=== PATIENT | female | born 1950 | race Caucasian/White ===

== ENCOUNTER 2022-06-03 15:15 | Inpatient (IN) | payer MEDICARE ==
[~2022-06-03] VITALS: Ht 167.6 cm; Wt 81.6 kg
[2022-06-03] MEDS: METFORMIN HCL 500 MG TAB PO SCH ×2 (08:00→17:00)
[2022-06-03] MEDS: Morphine 2mg Syringe 2 MG/ML SYR IV PRN ×2 (12:25→18:44)
[2022-06-03 15:48] LABS: BASOPHILS % 0.5 % (0.0-1.0); EOSINOPHILS # (AUTO) 0.1 (0.0-0.4); HEMATOCRIT 45.5 % (34.2-44.1); HEMOGLOBIN 14.6 g/dL (12.0-16.0); LYMPHOCYTES # (AUTO) 3.9 (1.0-3.2); LYMPHOCYTES % 47.6 % (18.0-39.1); MEAN CORPUSCULAR HEMOGLOBIN 32.7 pg (28-32); MEAN CORPUSCULAR HGB CONC 32.1 g/dL (31-35); MONOCYTES # (AUTO) 0.5 (0.2-0.8); MONOCYTES % 6.6 % (4.4-11.3); NEUTROPHILS # (AUTO) 3.7 (2.1-6.9); NEUTROPHILS % 44.2 % (38.7-80.0); PLATELET COUNT 443 x10e3/uL (140-360); RED BLOOD COUNT 4.46 x10e6/uL (3.6-5.1); RED CELL DISTRIBUTION WIDTH 15.8 % (11.7-14.4)
[2022-06-03 15:54] LABS: INR 0.86; PARTIAL THROMBOPLASTIN TIME 26.2 seconds (23.8-35.5); PROTHROMBIN TIME 12.5 seconds (11.9-14.5)
[2022-06-03 16:01] LABS: ALBUMIN 3.4 g/dL (3.5-5.0); ALBUMIN/GLOBULIN RATIO 0.7 (0.8-2.0); ANION GAP 13.1 mmol/L (8-16); CALCIUM 9.1 mg/dL (8.4-10.2); CREATININE, SERUM 0.8 mg/dL (0.57-1.11); POTASSIUM 4.1 mmol/L (3.5-5.1)
[2022-06-03] MEDS ORDERED: Morphine 2mg Syringe 2 MG/ML SYR IV ONE (16:15)
[2022-06-03] MEDS ORDERED: Morphine 2mg Syringe 2 MG/ML SYR IV PRN (16:30)
[2022-06-03] MEDS ORDERED: HYDROMORPHONE 1MG/1ML INJ IV PRN (17:30)
[2022-06-03 17:34] LABS: AMYLASE 59 U/L (25-125); LIPASE 12 U/L (8-78)
[2022-06-03] MEDS ORDERED: ATORVASTATIN CA20 MG PO (17:52)
[2022-06-03] MEDS ORDERED: ELIQUIS5 MG PO (17:52)
[2022-06-03] MEDS ORDERED: METOPROLOL TART25 MG PO (17:52)
[2022-06-03] MEDS ORDERED: METFORMIN HCL500 MG PO (17:52)
[2022-06-03] MEDS ORDERED: NOVOLOG100 UNIT/1 SC (17:52)
[2022-06-03 17:59] VITALS: BP 154/63
[2022-06-03 18:08] VITALS: BP 154/63
[2022-06-03 18:22] VITALS: BP 154/63
[2022-06-03] MEDS: SODIUM CHLORIDE 0.9% 1000ML 1,000 ML IV SCH (18:44)
[2022-06-03 20:00] VITALS: BP 150/64
[2022-06-03] MEDS: ATORVASTATIN 40 MG TAB PO SCH (21:16)
[2022-06-03] MEDS: ENOXAPARIN INJ 80 MG/0.8 ML SYR SC SCH (21:16)
[2022-06-04] VITALS (7 sets, daily range): BP systolic 130–146; BP diastolic 62–82
[2022-06-04] MEDS: Morphine 2mg Syringe 2 MG/ML SYR IV PRN ×4 (00:25→18:21)
[2022-06-04] MEDS: SODIUM CHLORIDE 0.9% 1000ML 1,000 ML IV SCH ×3 (01:18→16:46)
[2022-06-04 03:48] LABS: CREATINE KINASE MB 0.8 ng/mL (0-5.0)
[2022-06-04 05:51] LABS: BASOPHILS % 0.4 % (0.0-1.0); EOSINOPHILS # (AUTO) 0.2 (0.0-0.4); EOSINOPHILS % 2.7 % (0.0-6.0); HEMATOCRIT 42.5 % (34.2-44.1); HEMOGLOBIN 13.3 g/dL (12.0-16.0); LYMPHOCYTES # (AUTO) 5.2 (1.0-3.2); LYMPHOCYTES % 61.8 % (18.0-39.1); MEAN CORPUSCULAR HEMOGLOBIN 32.6 pg (28-32); MEAN CORPUSCULAR HGB CONC 31.3 g/dL (31-35); MEAN CORPUSCULAR VOLUME 104.2 fL (81-99); MONOCYTES # (AUTO) 0.9 (0.2-0.8); MONOCYTES % 10.8 % (4.4-11.3); NEUTROPHILS % 24.1 % (38.7-80.0); PLATELET COUNT 416 x10e3/uL (140-360); RED BLOOD COUNT 4.08 x10e6/uL (3.6-5.1); RED CELL DISTRIBUTION WIDTH 15.7 % (11.7-14.4)
[2022-06-04 06:19] LABS: ANION GAP 14.1 mmol/L (8-16); CALCIUM 8.3 mg/dL (8.4-10.2); CREATININE, SERUM 0.66 mg/dL (0.57-1.11); POTASSIUM 4.1 mmol/L (3.5-5.1)
[2022-06-04] MEDS ORDERED: IOPAMIDOL 370 MG/ML 100 ML INFUS..BTL INJ ONE (07:30)
[2022-06-04] MEDS: METOPROLOL TARTRATE 25 MG TAB PO SCH ×2 (08:25→16:47)
[2022-06-04] MEDS: METFORMIN HCL 500 MG TAB PO SCH ×2 (08:26→16:47)
[2022-06-04] MEDS: ENOXAPARIN INJ 80 MG/0.8 ML SYR SC SCH ×2 (08:26→20:03)
[2022-06-04] MEDS: INSULIN LISPRO 100 UNIT/1 ML 3ML VIAL SQ SCH ×3 (08:31→16:54)
[2022-06-04 09:39] LABS: INR 0.91; PROTHROMBIN TIME 13.1 seconds (11.9-14.5)
[2022-06-04 09:53] LABS: CREATINE KINASE MB 0.8 ng/mL (0-5.0)
[2022-06-04] MEDS ORDERED: WARFARIN SOD 5 MG TAB PO SCH (17:00)
[2022-06-04] MEDS: ONDANSETRON HCL INJ 2MG/ML 2ML 2 MG/ML VIAL IV PRN (18:21)
[2022-06-04] MEDS: ATORVASTATIN 40 MG TAB PO SCH (20:03)
[2022-06-05] VITALS (8 sets, daily range): BP systolic 126–156; BP diastolic 60–77
[2022-06-05] MEDS: Morphine 2mg Syringe 2 MG/ML SYR IV PRN ×4 (00:30→22:18)
[2022-06-05] MEDS: SODIUM CHLORIDE 0.9% 1000ML 1,000 ML IV SCH (00:30)
[2022-06-05] MEDS: ONDANSETRON HCL INJ 2MG/ML 2ML 2 MG/ML VIAL IV PRN ×2 (00:30→06:48)
[2022-06-05] MEDS: METOPROLOL TARTRATE 25 MG TAB PO SCH ×2 (09:05→16:53)
[2022-06-05] MEDS: METFORMIN HCL 500 MG TAB PO SCH ×2 (09:05→16:52)
[2022-06-05] MEDS: ENOXAPARIN INJ 80 MG/0.8 ML SYR SC SCH ×2 (09:05→21:36)
[2022-06-05] MEDS: INSULIN LISPRO 100 UNIT/1 ML 3ML VIAL SQ SCH ×3 (09:10→21:45)
[2022-06-05 10:13] LABS: INR 0.84; PROTHROMBIN TIME 12.3 seconds (11.9-14.5)
[2022-06-05] MEDS ORDERED: DEXTROSE 50% SYRINGE 50 ML IV PRN ×2 (11:45→12:00)
[2022-06-05] MEDS ORDERED: INSULIN GLARGINE 100 UNITS/ML VIAL SQ ONE (11:45)
[2022-06-05] MEDS: WARFARIN SOD 3 MG TAB PO SCH (16:53)
[2022-06-05] MEDS: ATORVASTATIN 40 MG TAB PO SCH (21:35)
[2022-06-05] MEDS: INSULIN GLARGINE 100 UNITS/ML VIAL SQ SCH (21:44)
[2022-06-06] VITALS (9 sets, daily range): BP systolic 128–165; BP diastolic 58–70
[2022-06-06] MEDS: TRAMADOL HCL 50 MG TAB PO PRN ×3 (03:42→18:29)
[2022-06-06 06:26] LABS: INR 0.94; PROTHROMBIN TIME 13.4 seconds (11.9-14.5)
[2022-06-06] MEDS: Morphine 2mg Syringe 2 MG/ML SYR IV PRN ×2 (06:50→14:43)
[2022-06-06] MEDS: INSULIN LISPRO 100 UNIT/1 ML 3ML VIAL SQ SCH ×4 (07:30→21:10)
[2022-06-06] MEDS: ENOXAPARIN INJ 80 MG/0.8 ML SYR SC SCH ×2 (09:20→21:04)
[2022-06-06] MEDS: METOPROLOL TARTRATE 25 MG TAB PO SCH ×2 (09:20→21:03)
[2022-06-06] MEDS: METFORMIN HCL 500 MG TAB PO SCH ×2 (09:21→17:24)
[2022-06-06 09:28] LABS: INR 0.94; PROTHROMBIN TIME 13.4 seconds (11.9-14.5)
[2022-06-06] MEDS: WARFARIN SOD 3 MG TAB PO SCH (17:23)
[2022-06-06] MEDS ORDERED: WARFARIN SOD 5 MG TAB PO ONE (18:55)
[2022-06-06] MEDS: ATORVASTATIN 40 MG TAB PO SCH (21:02)
[2022-06-06] MEDS: INSULIN GLARGINE 100 UNITS/ML VIAL SQ SCH (21:10)
[2022-06-06] MEDS: HYDROCODONE/APAP 5MG-325MG TAB PO PRN (22:53)
[2022-06-07] VITALS (7 sets, daily range): BP systolic 127–153; BP diastolic 57–74
[2022-06-07] MEDS: TRAMADOL HCL 50 MG TAB PO PRN (04:56)
[2022-06-07 06:05] LABS: BASOPHILS # (AUTO) 0.1 (0.0-0.1); BASOPHILS % 0.6 % (0.0-1.0); EOSINOPHILS # (AUTO) 0.2 (0.0-0.4); EOSINOPHILS % 1.8 % (0.0-6.0); HEMATOCRIT 40.5 % (34.2-44.1); HEMOGLOBIN 13.3 g/dL (12.0-16.0); LYMPHOCYTES # (AUTO) 5.3 (1.0-3.2); LYMPHOCYTES % 49.9 % (18.0-39.1); MEAN CORPUSCULAR HEMOGLOBIN 33.3 pg (28-32); MEAN CORPUSCULAR HGB CONC 32.8 g/dL (31-35); MEAN CORPUSCULAR VOLUME 101.3 fL (81-99); MONOCYTES # (AUTO) 0.9 (0.2-0.8); MONOCYTES % 8.1 % (4.4-11.3); NEUTROPHILS # (AUTO) 4.1 (2.1-6.9); NEUTROPHILS % 39.2 % (38.7-80.0); PLATELET COUNT 409 x10e3/uL (140-360); RED CELL DISTRIBUTION WIDTH 15.3 % (11.7-14.4)
[2022-06-07 06:22] LABS: INR 1.13; PROTHROMBIN TIME 15.5 seconds (11.9-14.5)
[2022-06-07 06:45] LABS: ALBUMIN/GLOBULIN RATIO 0.7 (0.8-2.0); ANION GAP 12.3 mmol/L (8-16); CALCIUM 8.4 mg/dL (8.4-10.2); CREATININE, SERUM 0.62 mg/dL (0.57-1.11); POTASSIUM 3.3 mmol/L (3.5-5.1)
[2022-06-07] MEDS: POTASSIUM CHLORIDE 20 MEQ TAB CR PO SCH ×2 (08:55→11:21)
[2022-06-07] MEDS: ENOXAPARIN INJ 80 MG/0.8 ML SYR SC SCH ×2 (08:55→21:08)
[2022-06-07] MEDS: METOPROLOL TARTRATE 25 MG TAB PO SCH ×2 (08:56→21:08)
[2022-06-07] MEDS: METFORMIN HCL 500 MG TAB PO SCH ×2 (08:57→17:06)
[2022-06-07] MEDS: HYDROCODONE/APAP 5MG-325MG TAB PO PRN ×3 (08:57→21:14)
[2022-06-07 08:59] LABS: INR 1.16; PROTHROMBIN TIME 15.8 seconds (11.9-14.5)
[2022-06-07] MEDS: INSULIN LISPRO 100 UNIT/1 ML 3ML VIAL SQ SCH ×4 (09:27→22:03)
[2022-06-07] MEDS ORDERED: WARFARIN SOD 5 MG TAB PO SCH (17:00)
[2022-06-07] MEDS ORDERED: WARFARIN SOD 2 MG TAB PO ONE (17:00)
[2022-06-07] MEDS: INSULIN GLARGINE 100 UNITS/ML VIAL SQ SCH (21:00)
[2022-06-07] MEDS: ATORVASTATIN 40 MG TAB PO SCH (21:15)
[2022-06-08] VITALS (7 sets, daily range): BP systolic 111–144; BP diastolic 71–87
[2022-06-08] MEDS: TRAMADOL HCL 50 MG TAB PO PRN (01:51)
[2022-06-08 06:34] LABS: INR 1.53; PROTHROMBIN TIME 19.7 seconds (11.9-14.5)
[2022-06-08] MEDS: INSULIN LISPRO 100 UNIT/1 ML 3ML VIAL SQ SCH ×4 (07:30→21:00)
[2022-06-08] MEDS: HYDROCODONE/APAP 5MG-325MG TAB PO PRN ×3 (07:59→20:00)
[2022-06-08 08:56] LABS: INR 1.56
[2022-06-08] MEDS: METFORMIN HCL 500 MG TAB PO SCH ×2 (09:21→17:50)
[2022-06-08] MEDS: METOPROLOL TARTRATE 25 MG TAB PO SCH ×2 (09:22→21:13)
[2022-06-08] MEDS: ENOXAPARIN INJ 80 MG/0.8 ML SYR SC SCH ×2 (09:25→21:14)
[2022-06-08] MEDS ORDERED: WARFARIN SOD 2 MG TAB PO SCH (17:00)
[2022-06-08] MEDS ORDERED: WARFARIN SOD 2.5 MG TAB PO SCH (17:35)
[2022-06-08] MEDS ORDERED: WARFARIN SOD 5 MG TAB PO SCH (17:35)
[2022-06-08] MEDS: WARFARIN SOD 2 MG TAB PO SCH (18:00)
[2022-06-08] MEDS: WARFARIN SOD 5 MG TAB PO SCH (18:00)
[2022-06-08] MEDS: INSULIN GLARGINE 100 UNITS/ML VIAL SQ SCH (21:00)
[2022-06-08] MEDS: ATORVASTATIN 40 MG TAB PO SCH (21:14)
[2022-06-09] VITALS: BP 144/69
[2022-06-09] MEDS: TRAMADOL HCL 50 MG TAB PO PRN ×4 (01:38→19:59)
[2022-06-09 04:00] VITALS: BP 161/73
[2022-06-09 06:21] LABS: INR 1.72; PROTHROMBIN TIME 21.5 seconds (11.9-14.5)
[2022-06-09] MEDS: INSULIN LISPRO 100 UNIT/1 ML 3ML VIAL SQ SCH ×4 (07:30→21:00)
[2022-06-09 07:57] VITALS: BP 131/56
[2022-06-09] MEDS: ENOXAPARIN INJ 80 MG/0.8 ML SYR SC SCH ×2 (09:17→21:00)
[2022-06-09] MEDS: METOPROLOL TARTRATE 25 MG TAB PO SCH ×2 (09:17→21:00)
[2022-06-09] MEDS: METFORMIN HCL 500 MG TAB PO SCH ×2 (09:18→15:51)
[2022-06-09 09:28] VITALS: BP 131/56
[2022-06-09] MEDS: HYDROCODONE/APAP 5MG-325MG TAB PO PRN ×3 (09:28→22:40)
[2022-06-09 09:39] LABS: INR 1.73; PROTHROMBIN TIME 21.6 seconds (11.9-14.5)
[2022-06-09 11:27] VITALS: BP 140/68
[2022-06-09] MEDS ORDERED: DOCUSATE SODIUM 100 MG CAP PO PRN (13:30)
[2022-06-09] MEDS ORDERED: LACTULOSE SYRUP 20 GM/30 ML UDC PO PRN (13:45)
[2022-06-09 14:19] LABS: BASOPHILS # (AUTO) 0.1 (0.0-0.1); BASOPHILS % 0.7 % (0.0-1.0); EOSINOPHILS # (AUTO) 0.2 (0.0-0.4); EOSINOPHILS % 2.6 % (0.0-6.0); HEMATOCRIT 47.2 % (34.2-44.1); HEMOGLOBIN 15.6 g/dL (12.0-16.0); LYMPHOCYTES # (AUTO) 3.8 (1.0-3.2); LYMPHOCYTES % 44.4 % (18.0-39.1); MEAN CORPUSCULAR HEMOGLOBIN 32.8 pg (28-32); MEAN CORPUSCULAR HGB CONC 33.1 g/dL (31-35); MEAN CORPUSCULAR VOLUME 99.2 fL (81-99); MONOCYTES # (AUTO) 0.7 (0.2-0.8); MONOCYTES % 7.8 % (4.4-11.3); NEUTROPHILS # (AUTO) 3.8 (2.1-6.9); NEUTROPHILS % 44.3 % (38.7-80.0); PLATELET COUNT 489 x10e3/uL (140-360); RED BLOOD COUNT 4.76 x10e6/uL (3.6-5.1); RED CELL DISTRIBUTION WIDTH 14.8 % (11.7-14.4)
[2022-06-09 14:31] LABS: ANION GAP 14.1 mmol/L (8-16); CALCIUM 8.9 mg/dL (8.4-10.2); CREATININE, SERUM 0.74 mg/dL (0.57-1.11); POTASSIUM 4.1 mmol/L (3.5-5.1)
[2022-06-09] MEDS: DOCUSATE SODIUM 100 MG CAP PO SCH (15:51)
[2022-06-09 16:21] VITALS: BP 155/76
[2022-06-09] MEDS: WARFARIN SOD 2 MG TAB PO SCH (16:39)
[2022-06-09] MEDS: WARFARIN SOD 5 MG TAB PO SCH (16:39)
[2022-06-09] MEDS: ATORVASTATIN 40 MG TAB PO SCH (21:00)
[2022-06-09] MEDS: INSULIN GLARGINE 100 UNITS/ML VIAL SQ SCH (21:00)
[2022-06-10] VITALS: BP 153/70
[2022-06-10] MEDS: TRAMADOL HCL 50 MG TAB PO PRN ×5 (03:29→16:30)
[2022-06-10 04:00] VITALS: BP 151/61
[2022-06-10] MEDS: HYDROCODONE/APAP 5MG-325MG TAB PO PRN ×3 (05:48→18:06)
[2022-06-10 06:12] LABS: INR 2.13; PROTHROMBIN TIME 25.5 seconds (11.9-14.5)
[2022-06-10 07:32] VITALS: BP 151/61
[2022-06-10 08:26] VITALS: BP 132/60
[2022-06-10] MEDS: METFORMIN HCL 500 MG TAB PO SCH ×2 (09:13→16:32)
[2022-06-10] MEDS: DOCUSATE SODIUM 100 MG CAP PO SCH ×2 (09:16→16:32)
[2022-06-10] MEDS: METOPROLOL TARTRATE 25 MG TAB PO SCH (09:17)
[2022-06-10] MEDS: ENOXAPARIN INJ 80 MG/0.8 ML SYR SC SCH (09:18)
[2022-06-10] MEDS: INSULIN LISPRO 100 UNIT/1 ML 3ML VIAL SQ SCH ×3 (10:19→15:42)
[2022-06-10 12:14] VITALS: BP 145/64
[2022-06-10 16:04] VITALS: BP 115/60
[2022-06-10] MEDS: WARFARIN SOD 5 MG TAB PO SCH (18:05)
[2022-06-10] MEDS: WARFARIN SOD 2 MG TAB PO SCH (18:05)
[2022-06-10] MEDS ORDERED: ONDANSETRON HCL 4 MG ORAL DISINTEGRATING TAB PO PRN (19:15)
== END 2022-06-10 19:51 | disposition home or self-care (01) | DRG 176 ==
LOC: ER 15:24 → ERHOLD 16:30 → MED/SURG2 17:44
PROVIDERS: ADMIT Family Medicine; ATTEND Family Medicine
DX: I26.93 Single subsegmental thrombotic pulmonary embolism without acute cor pulmonale (principal); D68.9 Coagulation defect, unspecified; I26.99 Other pulmonary embolism without acute cor pulmonale; I10 Essential (primary) hypertension; Z20.822 Contact with and (suspected) exposure to COVID-19; K59.00 Constipation, unspecified; Z79.84 Long term (current) use of oral hypoglycemic drugs; I48.0 Paroxysmal atrial fibrillation; Z79.01 Long term (current) use of anticoagulants; E11.69 Type 2 diabetes mellitus with other specified complication; E78.5 Hyperlipidemia, unspecified
CPT/HCPCS: 0223U; 36415; 71045; 80048; 80053; 82150; 82550; 82553; 82948; 83690; 83880; 84484; 85025; 85610; 85730; 93005; 93306; 94799; 99284; J1650; J1815; J2270; J2405; J7030; Q9967

== ENCOUNTER → 2022-06-03 | Outpatient (CLI) | payer MEDICARE ==
[~2022-06-03] MED LIST: ATORVASTATIN CA20 MG PO; ELIQUIS5 MG PO; METFORMIN HCL500 MG PO; METOPROLOL TART25 MG PO; NOVOLOG100 UNIT/1 SC
[2022-06-03 13:48] LABS: CREATININE, SERUM 0.84 mg/dL (0.57-1.11)
== END ==
LOC: CT 12:36
PROVIDERS: ATTEND Nurse Practitioner Family
DX: R09.02 Hypoxemia (principal)
CPT/HCPCS: 36415; 71260; 82565; 84520

== ENCOUNTER 2022-06-21 18:21 | Emergency (ER) | payer MEDICARE ==
[~2022-06-21] VITALS: Ht 167.6 cm; Wt 81.6 kg
[2022-06-21 19:01] LABS: BASOPHILS # (AUTO) 0.1 (0.0-0.1); BASOPHILS % 0.6 % (0.0-1.0); EOSINOPHILS # (AUTO) 0.1 (0.0-0.4); HEMATOCRIT 43.6 % (34.2-44.1); HEMOGLOBIN 13.9 g/dL (12.0-16.0); LYMPHOCYTES # (AUTO) 6.7 (1.0-3.2); MEAN CORPUSCULAR HEMOGLOBIN 32.8 pg (28-32); MEAN CORPUSCULAR HGB CONC 31.9 g/dL (31-35); MEAN CORPUSCULAR VOLUME 102.8 fL (81-99); MONOCYTES # (AUTO) 0.5 (0.2-0.8); MONOCYTES % 4.7 % (4.4-11.3); NEUTROPHILS # (AUTO) 2.7 (2.1-6.9); NEUTROPHILS % 26.5 % (38.7-80.0); PLATELET COUNT 614 x10e3/uL (140-360); RED BLOOD COUNT 4.24 x10e6/uL (3.6-5.1); RED CELL DISTRIBUTION WIDTH 15.1 % (11.7-14.4)
[2022-06-21 19:11] LABS: INR 2.88; PROTHROMBIN TIME 32.2 seconds (11.9-14.5)
[2022-06-21 19:20] LABS: ALANINE AMINOTRANSFERASE 24 IU/L (0-55); ALBUMIN 3.3 g/dL (3.5-5.0); ALBUMIN/GLOBULIN RATIO 0.7 (0.8-2.0); ALKALINE PHOSPHATASE 276 IU/L (40-150); ANION GAP 17.2 mmol/L (8-16); BLOOD UREA NITROGEN 21 mg/dL (7-26); BUN/CREATININE RATIO 27 (6-25); CALCIUM 8.7 mg/dL (8.4-10.2); CARBON DIOXIDE 16 mmol/L (22-29); CHLORIDE 112 mmol/L (98-107); CREATINE KINASE 36 IU/L (29-168); CREATININE, SERUM 0.79 mg/dL (0.57-1.11); GLUCOSE 257 mg/dL (74-118); POTASSIUM 4.2 mmol/L (3.5-5.1); SODIUM 141 mmol/L (136-145)
[2022-06-21] MEDS ORDERED: Morphine 4mg INJECTION 4 MG/ML INJ IV ONE (19:30)
[2022-06-21] MEDS ORDERED: ONDANSETRON HCL INJ 2MG/ML 2ML 2 MG/ML VIAL IV STA (19:37)
[2022-06-21 22:21] LABS: CREATINE KINASE MB 0.9 ng/mL (0-5.0)
[2022-06-21] MEDS ORDERED: ULTRAM 50MG50 MG PO (22:40)
[2022-06-21 23:02] VITALS: BP 154/82
== END 2022-06-21 23:07 | disposition home or self-care (01) ==
LOC: ER 18:33
DX: R07.9 Chest pain, unspecified (principal); E11.65 Type 2 diabetes mellitus with hyperglycemia; E78.5 Hyperlipidemia, unspecified; Z86.73 Personal history of transient ischemic attack (TIA), and cerebral infarction without residual deficits
CPT/HCPCS: 36415; 71045; 80053; 82550; 82553; 84484; 85025; 85610; 85730; 93005; 99284; J2270

== ENCOUNTER 2022-06-27 21:01 | Inpatient (IN) | payer MEDICARE ==
[~2022-06-27] VITALS: Ht 167.6 cm; Wt 81.6 kg
[~2022-06-27 21:01] MED LIST changes: +ULTRAM 50MG50 MG PO
[2022-06-27 21:15] LABS: BASOPHILS % 0.4 % (0.0-1.0); EOSINOPHILS # (AUTO) 0.2 (0.0-0.4); HEMOGLOBIN 14.2 g/dL (12.0-16.0); LYMPHOCYTES # (AUTO) 4.6 (1.0-3.2); LYMPHOCYTES % 49.8 % (18.0-39.1); MEAN CORPUSCULAR HGB CONC 32.3 g/dL (31-35); MEAN CORPUSCULAR VOLUME 102.3 fL (81-99); MONOCYTES # (AUTO) 0.5 (0.2-0.8); MONOCYTES % 5.4 % (4.4-11.3); NEUTROPHILS # (AUTO) 3.9 (2.1-6.9); PLATELET COUNT 554 x10e3/uL (140-360); RED CELL DISTRIBUTION WIDTH 14.8 % (11.7-14.4)
[2022-06-27] MEDS ORDERED: ASPIRIN 81 MG CHEW TAB PO ONE (21:15)
[2022-06-27] MEDS ORDERED: ASPIRIN 325 MG TAB PO STA (21:17)
[2022-06-27] MEDS ORDERED: Morphine 4mg INJECTION 4 MG/ML INJ IV STA (21:17)
[2022-06-27] MEDS ORDERED: ONDANSETRON HCL INJ 2MG/ML 2ML 2 MG/ML VIAL IV STA (21:17)
[2022-06-27 21:24] LABS: INR 0.88; PARTIAL THROMBOPLASTIN TIME 26.9 seconds (23.8-35.5); PROTHROMBIN TIME 12.8 seconds (11.9-14.5)
[2022-06-27 21:31] LABS: ALBUMIN 3.2 g/dL (3.5-5.0); ALBUMIN/GLOBULIN RATIO 0.7 (0.8-2.0); ANION GAP 16.3 mmol/L (8-16); CALCIUM 9.1 mg/dL (8.4-10.2); CREATININE, SERUM 0.73 mg/dL (0.57-1.11); POTASSIUM 3.3 mmol/L (3.5-5.1)
[2022-06-27] MEDS ORDERED: ASPIRIN 325 MG TAB ONE (21:36)
[2022-06-27] MEDS ORDERED: ONDANSETRON HCL INJ 2MG/ML 2ML 2 MG/ML VIAL ONE (21:37)
[2022-06-27] MEDS ORDERED: Morphine 4mg INJECTION 4 MG/ML INJ ONE (21:37)
[2022-06-27] MEDS ORDERED: IOPAMIDOL 370 MG/ML 100 ML INFUS..BTL INJ ONE (22:31)
[2022-06-28] VITALS (9 sets, daily range): BP systolic 137–166; BP diastolic 66–84
[2022-06-28] MEDS ORDERED: INSULIN AS100 UNIT/3 SC (00:39)
[2022-06-28] MEDS ORDERED: WARFARIN SODIUM5 MG PO (00:39)
[2022-06-28] MEDS ORDERED: WARFARIN SODIUM1 MG PO (00:39)
[2022-06-28] MEDS: SODIUM CHLORIDE 0.9% 1000ML 1,000 ML IV SCH ×3 (01:59→15:08)
[2022-06-28] MEDS: ONDANSETRON HCL INJ 2MG/ML 2ML 2 MG/ML VIAL IV PRN ×2 (02:00→06:16)
[2022-06-28] MEDS: Morphine 4mg INJECTION 4 MG/ML INJ IV PRN ×5 (02:00→20:03)
[2022-06-28 05:45] LABS: BASOPHILS # (AUTO) 0.1 (0.0-0.1); BASOPHILS % 0.7 % (0.0-1.0); EOSINOPHILS # (AUTO) 0.2 (0.0-0.4); EOSINOPHILS % 1.4 % (0.0-6.0); HEMATOCRIT 42.8 % (34.2-44.1); HEMOGLOBIN 13.9 g/dL (12.0-16.0); LYMPHOCYTES % 47.3 % (18.0-39.1); MEAN CORPUSCULAR HEMOGLOBIN 32.6 pg (28-32); MEAN CORPUSCULAR HGB CONC 32.5 g/dL (31-35); MEAN CORPUSCULAR VOLUME 100.5 fL (81-99); MONOCYTES # (AUTO) 0.8 (0.2-0.8); MONOCYTES % 7.1 % (4.4-11.3); NEUTROPHILS # (AUTO) 4.6 (2.1-6.9); NEUTROPHILS % 43.1 % (38.7-80.0); PLATELET COUNT 450 x10e3/uL (140-360); RED BLOOD COUNT 4.26 x10e6/uL (3.6-5.1); RED CELL DISTRIBUTION WIDTH 14.8 % (11.7-14.4)
[2022-06-28 06:36] LABS: ALBUMIN/GLOBULIN RATIO 0.7 (0.8-2.0); ANION GAP 16.7 mmol/L (8-16); CREATININE, SERUM 0.63 mg/dL (0.57-1.11); POTASSIUM 3.7 mmol/L (3.5-5.1)
[2022-06-28 07:07] LABS: CREATINE KINASE 32 IU/L (29-168)
[2022-06-28 10:10] LABS: AMYLASE 53 U/L (25-125); LIPASE 13 U/L (8-78)
[2022-06-28] MEDS ORDERED: WARFARIN SOD 2 MG TAB PO NR (13:00)
[2022-06-28 15:11] LABS: CREATINE KINASE MB 0.7 ng/mL (0-5.0)
[2022-06-28] MEDS ORDERED: METOPROLOL TARTRATE 25 MG TAB PO SCH (17:00)
[2022-06-28] MEDS: INSULIN LISPRO 100 UNIT/1 ML 3ML VIAL SQ SCH (17:00)
[2022-06-28] MEDS: METFORMIN HCL 500 MG TAB PO SCH (17:30)
[2022-06-28] MEDS: WARFARIN SOD 3 MG TAB PO SCH (17:30)
[2022-06-28] MEDS: ENOXAPARIN INJ 80 MG/0.8 ML SYR SC SCH (20:02)
[2022-06-28] MEDS ORDERED: ATORVASTATIN 20 MG TAB PO SCH (21:00)
[2022-06-29] VITALS: BP 171/74
[2022-06-29] MEDS: Morphine 4mg INJECTION 4 MG/ML INJ IV PRN ×4 (00:08→13:19)
[2022-06-29] MEDS: SODIUM CHLORIDE 0.9% 1000ML 1,000 ML IV SCH ×3 (02:04→18:37)
[2022-06-29 04:00] VITALS: BP 153/84
[2022-06-29 06:24] LABS: ALBUMIN 2.7 g/dL (3.5-5.0); ALBUMIN/GLOBULIN RATIO 0.6 (0.8-2.0); ANION GAP 14.7 mmol/L (8-16); CALCIUM 8.6 mg/dL (8.4-10.2); CHOL/HDL RATIO 3.6 (3.0-3.6); CREATININE, SERUM 0.57 mg/dL (0.57-1.11); POTASSIUM 3.7 mmol/L (3.5-5.1)
[2022-06-29 06:30] LABS: BASOPHILS # (AUTO) 0.1 (0.0-0.1); BASOPHILS % 0.7 % (0.0-1.0); EOSINOPHILS # (AUTO) 0.2 (0.0-0.4); EOSINOPHILS % 2.7 % (0.0-6.0); HEMATOCRIT 50.6 % (34.2-44.1); HEMOGLOBIN 16.5 g/dL (12.0-16.0); LYMPHOCYTES # (AUTO) 4.6 (1.0-3.2); LYMPHOCYTES % 61.3 % (18.0-39.1); MEAN CORPUSCULAR HEMOGLOBIN 33.4 pg (28-32); MEAN CORPUSCULAR HGB CONC 32.6 g/dL (31-35); MEAN CORPUSCULAR VOLUME 102.4 fL (81-99); MONOCYTES # (AUTO) 0.7 (0.2-0.8); MONOCYTES % 9.1 % (4.4-11.3); NEUTROPHILS # (AUTO) 1.9 (2.1-6.9); NEUTROPHILS % 25.9 % (38.7-80.0); PLATELET COUNT 360 x10e3/uL (140-360); RED BLOOD COUNT 4.94 x10e6/uL (3.6-5.1); RED CELL DISTRIBUTION WIDTH 15.3 % (11.7-14.4)
[2022-06-29 06:46] LABS: THYROID STIMULATING HORMONE 2.693 uIU/mL (0.350-4.940)
[2022-06-29 08:00] VITALS: BP 153/84
[2022-06-29] MEDS: INSULIN LISPRO 100 UNIT/1 ML 3ML VIAL SQ SCH ×3 (08:00→19:00)
[2022-06-29 08:32] VITALS: BP 147/81
[2022-06-29] MEDS: ENOXAPARIN INJ 80 MG/0.8 ML SYR SC SCH ×2 (08:53→20:44)
[2022-06-29] MEDS: METFORMIN HCL 500 MG TAB PO SCH ×2 (08:53→18:38)
[2022-06-29 09:34] LABS: INR 0.87; PROTHROMBIN TIME 12.6 seconds (11.9-14.5)
[2022-06-29] MEDS ORDERED: REGADENOSON 0.4 MG/5 ML SYR IV ONE (10:27)
[2022-06-29] MEDS: WARFARIN SOD 3 MG TAB PO SCH (18:38)
[2022-06-29] MEDS: HYDROMORPHONE 1MG/1ML INJ IV PRN ×2 (18:47→23:30)
[2022-06-29 20:00] VITALS: BP_SYST 114; BP_SYST 153; BP_DIAS 62; BP_DIAS 67
[2022-06-29] MEDS: TRAMADOL HCL 50 MG TAB PO PRN (22:32)
[2022-06-29] MEDS ORDERED: LACTATED RINGER'S 200 ML IV ONE (22:45)
[2022-06-30] VITALS (9 sets, daily range): BP systolic 135–178; BP diastolic 65–78
[2022-06-30] MEDS: LACTATED RINGER'S 1,000 ML INJ SCH ×4 (00:09→22:51)
[2022-06-30 05:16] LABS: BASOPHILS % 0.6 % (0.0-1.0); EOSINOPHILS # (AUTO) 0.2 (0.0-0.4); EOSINOPHILS % 2.5 % (0.0-6.0); HEMATOCRIT 40.8 % (34.2-44.1); HEMOGLOBIN 13.3 g/dL (12.0-16.0); LYMPHOCYTES # (AUTO) 3.8 (1.0-3.2); LYMPHOCYTES % 52.9 % (18.0-39.1); MEAN CORPUSCULAR HEMOGLOBIN 32.6 pg (28-32); MEAN CORPUSCULAR HGB CONC 32.6 g/dL (31-35); MONOCYTES # (AUTO) 0.6 (0.2-0.8); MONOCYTES % 8.9 % (4.4-11.3); NEUTROPHILS # (AUTO) 2.5 (2.1-6.9); PLATELET COUNT 388 x10e3/uL (140-360); RED BLOOD COUNT 4.08 x10e6/uL (3.6-5.1); RED CELL DISTRIBUTION WIDTH 14.7 % (11.7-14.4)
[2022-06-30 05:38] LABS: ALBUMIN 2.7 g/dL (3.5-5.0); ALBUMIN/GLOBULIN RATIO 0.6 (0.8-2.0); ANION GAP 16.4 mmol/L (8-16); CALCIUM 8.5 mg/dL (8.4-10.2); CREATININE, SERUM 0.55 mg/dL (0.57-1.11); POTASSIUM 3.4 mmol/L (3.5-5.1)
[2022-06-30 05:46] LABS: INR 0.99
[2022-06-30 05:47] LABS: PARTIAL THROMBOPLASTIN TIME 38.3 seconds (23.8-35.5)
[2022-06-30] MEDS: INSULIN LISPRO 100 UNIT/1 ML 3ML VIAL SQ SCH ×3 (08:00→17:00)
[2022-06-30] MEDS: METFORMIN HCL 500 MG TAB PO SCH ×2 (08:00→17:00)
[2022-06-30] MEDS: ONDANSETRON HCL INJ 2MG/ML 2ML 2 MG/ML VIAL IV PRN ×4 (09:34→22:56)
[2022-06-30] MEDS: HYDROMORPHONE 1MG/1ML INJ IV PRN ×4 (09:34→22:48)
[2022-06-30] MEDS: ENOXAPARIN INJ 80 MG/0.8 ML SYR SC SCH ×2 (09:34→20:25)
[2022-06-30] MEDS ORDERED: GADOBENATE DIMEGLUMINE 1 ML IV ONE (12:02)
[2022-06-30] MEDS ORDERED: WARFARIN SOD 2 MG TAB PO NR (13:30)
[2022-06-30] MEDS ORDERED: POTASSIUM CHLORIDE 10MEQ EA PO NR (13:45)
[2022-06-30] MEDS ORDERED: DONNATAL/LIDOCAINE/MAALOX 30 ML SUSP PO ONE (13:45)
[2022-06-30] MEDS: METOPROLOL TARTRATE 25 MG TAB PO SCH (17:22)
[2022-06-30] MEDS: WARFARIN SOD 3 MG TAB PO SCH (17:23)
[2022-07-01] VITALS (8 sets, daily range): BP systolic 129–161; BP diastolic 65–81
[2022-07-01] MEDS ORDERED: METOCLOPRAMIDE HCL 10 MG/2ML VIAL IV STA (00:42)
[2022-07-01] MEDS: HYDROMORPHONE 1MG/1ML INJ IV PRN ×5 (02:50→20:23)
[2022-07-01] MEDS: ONDANSETRON HCL INJ 2MG/ML 2ML 2 MG/ML VIAL IV PRN ×5 (02:50→20:23)
[2022-07-01] MEDS: METOCLOPRAMIDE HCL 10 MG/2ML VIAL IV SCH ×3 (05:39→17:48)
[2022-07-01 05:51] LABS: BASOPHILS # (AUTO) 0.1 (0.0-0.1); BASOPHILS % 0.7 % (0.0-1.0); EOSINOPHILS # (AUTO) 0.3 (0.0-0.4); HEMATOCRIT 42.3 % (34.2-44.1); LYMPHOCYTES # (AUTO) 3.4 (1.0-3.2); LYMPHOCYTES % 46.7 % (18.0-39.1); MEAN CORPUSCULAR HEMOGLOBIN 32.7 pg (28-32); MEAN CORPUSCULAR HGB CONC 33.1 g/dL (31-35); MEAN CORPUSCULAR VOLUME 98.8 fL (81-99); MONOCYTES # (AUTO) 0.7 (0.2-0.8); MONOCYTES % 9.1 % (4.4-11.3); NEUTROPHILS # (AUTO) 2.8 (2.1-6.9); NEUTROPHILS % 39.2 % (38.7-80.0); PLATELET COUNT 380 x10e3/uL (140-360); RED BLOOD COUNT 4.28 x10e6/uL (3.6-5.1); RED CELL DISTRIBUTION WIDTH 14.7 % (11.7-14.4)
[2022-07-01 06:11] LABS: INR 1.31; PARTIAL THROMBOPLASTIN TIME 43.6 seconds (23.8-35.5); PROTHROMBIN TIME 17.4 seconds (11.9-14.5)
[2022-07-01 06:16] LABS: ALBUMIN/GLOBULIN RATIO 0.7 (0.8-2.0); ANION GAP 17.2 mmol/L (8-16); CALCIUM 8.8 mg/dL (8.4-10.2); CREATININE, SERUM 0.61 mg/dL (0.57-1.11); POTASSIUM 3.2 mmol/L (3.5-5.1)
[2022-07-01] MEDS: LACTATED RINGER'S 1,000 ML INJ SCH ×2 (06:59→14:42)
[2022-07-01] MEDS: INSULIN LISPRO 100 UNIT/1 ML 3ML VIAL SQ SCH ×3 (08:00→17:52)
[2022-07-01] MEDS: ENOXAPARIN INJ 80 MG/0.8 ML SYR SC SCH ×2 (08:46→20:23)
[2022-07-01] MEDS: METFORMIN HCL 500 MG TAB PO SCH ×2 (08:46→17:47)
[2022-07-01] MEDS: METOPROLOL TARTRATE 25 MG TAB PO SCH ×2 (08:46→17:48)
[2022-07-01] MEDS: POTASSIUM CHLORIDE 20 MEQ TAB CR PO SCH ×2 (12:18→14:41)
[2022-07-01] MEDS: WARFARIN SOD 3 MG TAB PO SCH (17:47)
[2022-07-01] MEDS ORDERED: DIPHENOXYLATE/ATROPINE TAB PO PRN (18:45)
[2022-07-01] MEDS ORDERED: WARFARIN SOD 2 MG TAB PO NR (18:45)
[2022-07-01] MEDS: TRAMADOL HCL 50 MG TAB PO PRN (19:41)
[2022-07-02] VITALS (8 sets, daily range): BP systolic 109–154; BP diastolic 65–72
[2022-07-02] MEDS: ONDANSETRON HCL INJ 2MG/ML 2ML 2 MG/ML VIAL IV PRN (00:55)
[2022-07-02] MEDS: HYDROMORPHONE 1MG/1ML INJ IV PRN ×6 (00:56→21:24)
[2022-07-02] MEDS: METOCLOPRAMIDE HCL 10 MG/2ML VIAL IV SCH ×4 (00:56→17:00)
[2022-07-02] MEDS ORDERED: DONNATAL/LIDOCAINE/MAALOX 30 ML SUSP PO ONE ×2 (01:45→09:00)
[2022-07-02 07:26] LABS: INR 1.57; PROTHROMBIN TIME 20.1 seconds (11.9-14.5)
[2022-07-02 07:43] LABS: ALBUMIN 2.8 g/dL (3.5-5.0); ALBUMIN/GLOBULIN RATIO 0.7 (0.8-2.0); ANION GAP 15.6 mmol/L (8-16); CALCIUM 8.6 mg/dL (8.4-10.2); CREATININE, SERUM 0.66 mg/dL (0.57-1.11); POTASSIUM 3.6 mmol/L (3.5-5.1)
[2022-07-02] MEDS: INSULIN LISPRO 100 UNIT/1 ML 3ML VIAL SQ SCH ×3 (08:00→17:00)
[2022-07-02] MEDS: METFORMIN HCL 500 MG TAB PO SCH ×2 (08:00→17:02)
[2022-07-02] MEDS: METOPROLOL TARTRATE 25 MG TAB PO SCH ×2 (08:59→17:00)
[2022-07-02] MEDS: ENOXAPARIN INJ 80 MG/0.8 ML SYR SC SCH ×2 (09:00→21:24)
[2022-07-02] MEDS: WARFARIN SOD 3 MG TAB PO SCH (17:00)
[2022-07-03] VITALS: BP 143/68
[2022-07-03] MEDS: METOCLOPRAMIDE HCL 10 MG/2ML VIAL IV SCH ×2 (01:33→05:21)
[2022-07-03] MEDS: HYDROMORPHONE 1MG/1ML INJ IV PRN ×2 (01:38→05:57)
[2022-07-03 04:00] VITALS: BP 132/65
[2022-07-03 07:45] VITALS: BP 144/65
[2022-07-03] MEDS: ENOXAPARIN INJ 80 MG/0.8 ML SYR SC SCH (09:10)
[2022-07-03] MEDS: METOPROLOL TARTRATE 25 MG TAB PO SCH (09:10)
[2022-07-03] MEDS: METFORMIN HCL 500 MG TAB PO SCH (09:10)
[2022-07-03 09:13] LABS: INR 1.84; PROTHROMBIN TIME 22.7 seconds (11.9-14.5)
[2022-07-03] MEDS: INSULIN LISPRO 100 UNIT/1 ML 3ML VIAL SQ SCH (09:54)
== END 2022-07-03 11:49 | disposition home or self-care (01) | DRG 206 ==
LOC: ER 21:09 → ERHOLD 23:09 → MED/SURG2 23:55 → OBSVTOIN 06-29 14:48
PROVIDERS: ADMIT Family Medicine; ATTEND Family Medicine
DX: M94.0 Chondrocostal junction syndrome [Tietze] (principal); K86.1 Other chronic pancreatitis; I69.351 Hemiplegia and hemiparesis following cerebral infarction affecting right dominant side; Z86.711 Personal history of pulmonary embolism; Z79.01 Long term (current) use of anticoagulants; R74.01 Elevation of levels of liver transaminase levels; E11.9 Type 2 diabetes mellitus without complications; Z79.4 Long term (current) use of insulin; Z79.899 Other long term (current) drug therapy; E78.00 Pure hypercholesterolemia, unspecified; Z99.89 Dependence on other enabling machines and devices; I48.91 Unspecified atrial fibrillation; R79.1 Abnormal coagulation profile; Z20.822 Contact with and (suspected) exposure to COVID-19
CPT/HCPCS: 36415; 71260; 74183; 76705; 78452; 80053; 80061; 82150; 82550; 82553; 82948; 83690; 83880; 84443; 84484; 85025; 85610; 85730; 86039; 86255; 93005; 93017; 96361; 99284; A9502; G0378; J1170; J1650; J2270; J2405; J2765; J7030; J7121; Q9967

== ENCOUNTER 2022-07-03 15:09 | Emergency (ER) | payer MEDICARE ==
[~2022-07-03] VITALS: Ht 167.6 cm; Wt 79.4 kg
[~2022-07-03 15:09] MED LIST changes: +INSULIN AS100 UNIT/3 SC; +WARFARIN SODIUM1 MG PO; +WARFARIN SODIUM5 MG PO
== END 2022-07-03 16:01 | disposition home or self-care (01) ==
LOC: ER 15:12
DX: R07.9 Chest pain, unspecified (principal); E11.9 Type 2 diabetes mellitus without complications; Z86.73 Personal history of transient ischemic attack (TIA), and cerebral infarction without residual deficits
CPT/HCPCS: 93005; 99282

== ENCOUNTER 2022-12-31 22:28 | Inpatient (IN) | payer MEDICARE ==
[~2022-12-31] VITALS: Ht 167.6 cm; Wt 84.8 kg
[2022-12-31] MEDS ORDERED: METOPROLOL TARTRATE INJ 1 MG/ML VIAL IV ONE (23:00)
[2022-12-31 23:20] LABS: BASOPHILS # (AUTO) 0.1 (0.0-0.1); BASOPHILS % 0.5 % (0.0-1.0); EOSINOPHILS # (AUTO) 0.1 (0.0-0.4); HEMATOCRIT 48.6 % (34.2-44.1); HEMOGLOBIN 16.3 g/dL (12.0-16.0); LYMPHOCYTES # (AUTO) 5.4 (1.0-3.2); LYMPHOCYTES % 51.4 % (18.0-39.1); MEAN CORPUSCULAR HEMOGLOBIN 35.4 pg (28-32); MEAN CORPUSCULAR HGB CONC 33.5 g/dL (31-35); MEAN CORPUSCULAR VOLUME 105.4 fL (81-99); MONOCYTES # (AUTO) 0.6 (0.2-0.8); MONOCYTES % 5.5 % (4.4-11.3); NEUTROPHILS # (AUTO) 4.4 (2.1-6.9); NEUTROPHILS % 41.4 % (38.7-80.0); PLATELET COUNT 321 x10e3/uL (140-360); RED BLOOD COUNT 4.61 x10e6/uL (3.6-5.1); RED CELL DISTRIBUTION WIDTH 14.8 % (11.7-14.4)
[2022-12-31 23:24] LABS: INR 0.92; PROTHROMBIN TIME 12.6 seconds (11.9-14.5)
[2022-12-31 23:25] LABS: PARTIAL THROMBOPLASTIN TIME 23.8 seconds (23.8-35.5)
[2022-12-31 23:35] LABS: ALBUMIN 3.4 g/dL (3.5-5.0); ALBUMIN/GLOBULIN RATIO 0.9 (0.8-2.0); CALCIUM 8.7 mg/dL (8.4-10.2); CREATININE, SERUM 1.06 mg/dL (0.57-1.11)
[2022-12-31 23:41] LABS: CREATINE KINASE MB 1.7 ng/mL (0-5.0)
[2023-01-01] VITALS (10 sets, daily range): BP systolic 122–141; BP diastolic 73–91
[2023-01-01] MEDS ORDERED: ONDANSETRON HCL INJ 2MG/ML 2ML 2 MG/ML VIAL IV STA (00:01)
[2023-01-01] MEDS ORDERED: Morphine 4mg INJECTION 4 MG/ML INJ IV ONE (00:15)
[2023-01-01] MEDS ORDERED: HEPARIN 25,000 UNIT/D5W 250ML 1,200 UNIT in DEXTROSE 5% 250ML 250 ML IV SCH (01:30)
[2023-01-01] MEDS ORDERED: HEPARIN SOD (PORCINE) 5,000 UNIT/ML VIAL IV ONE ×4 (01:30→03:00)
[2023-01-01] MEDS ORDERED: SODIUM CHLORIDE FLUSH 10 ML SYR INJ PRN (01:45)
[2023-01-01] MEDS ORDERED: DEXTROSE 50% SYRINGE 50 ML IV PRN (01:45)
[2023-01-01] MEDS ORDERED: FUROSEMIDE INJ 10 MG/ML 4 ML VIAL IV ONE (02:00)
[2023-01-01] MEDS: HEPARIN 25,000 UNIT/D5W 250ML 250 ML IV SCH (02:34)
[2023-01-01] MEDS ORDERED: HEPARIN 25,000 UNIT DRIP IV ONE (02:41)
[2023-01-01] MEDS ORDERED: [UNRECOGNIZED DRUG - OTHER] IV SCH (02:45)
[2023-01-01] MEDS ORDERED: DEXTROSE 5% IV SCH (02:45)
[2023-01-01] MEDS ORDERED: HEPARIN IV SCH (02:45)
[2023-01-01] MEDS ORDERED: HEPARIN 25,000 UNIT/D5W 250ML 1,300 UNIT in DEXTROSE 5% 250ML 250 ML IV SCH ×4 (03:00)
[2023-01-01] MEDS: ONDANSETRON HCL INJ 2MG/ML 2ML 2 MG/ML VIAL IV PRN ×5 (03:35→20:36)
[2023-01-01] MEDS: Morphine 4mg INJECTION 4 MG/ML INJ IV PRN ×5 (03:35→20:36)
[2023-01-01] MEDS ORDERED: IOPAMIDOL 370 MG/ML 100 ML INFUS..BTL INJ ONE (03:47)
[2023-01-01] MEDS ORDERED: POTASSIUM PO (03:55)
[2023-01-01] MEDS ORDERED: ZYRTEC10 MG (03:55)
[2023-01-01] MEDS: INSULIN REGULAR, HUMAN 100 UNIT/1 ML SQ SCH ×4 (08:18→20:44)
[2023-01-01 09:50] LABS: BASOPHILS % 0.4 % (0.0-1.0); EOSINOPHILS # (AUTO) 0.1 (0.0-0.4); EOSINOPHILS % 0.6 % (0.0-6.0); HEMOGLOBIN 15.3 g/dL (12.0-16.0); LYMPHOCYTES # (AUTO) 4.1 (1.0-3.2); LYMPHOCYTES % 45.3 % (18.0-39.1); MEAN CORPUSCULAR HEMOGLOBIN 35.7 pg (28-32); MEAN CORPUSCULAR VOLUME 105.1 fL (81-99); MONOCYTES # (AUTO) 0.6 (0.2-0.8); MONOCYTES % 6.7 % (4.4-11.3); NEUTROPHILS # (AUTO) 4.2 (2.1-6.9); NEUTROPHILS % 46.8 % (38.7-80.0); PLATELET COUNT 269 x10e3/uL (140-360); RED BLOOD COUNT 4.28 x10e6/uL (3.6-5.1); RED CELL DISTRIBUTION WIDTH 15.1 % (11.7-14.4)
[2023-01-01 10:07] LABS: CREATINE KINASE MB 1.8 ng/mL (0-5.0)
[2023-01-01] MEDS ORDERED: WARFARIN SOD 1 MG TAB PO SCH (17:00)
[2023-01-01] MEDS: WARFARIN SOD 3 MG TAB PO SCH (17:01)
[2023-01-01 17:47] LABS: CREATINE KINASE MB 1.8 ng/mL (0-5.0)
[2023-01-02] VITALS (7 sets, daily range): BP systolic 122–144; BP diastolic 71–77
[2023-01-02] MEDS: ONDANSETRON HCL INJ 2MG/ML 2ML 2 MG/ML VIAL IV PRN ×6 (01:02→20:27)
[2023-01-02] MEDS: Morphine 4mg INJECTION 4 MG/ML INJ IV PRN ×6 (01:02→20:25)
[2023-01-02] MEDS: HEPARIN 25,000 UNIT/D5W 250ML 250 ML IV SCH (01:20)
[2023-01-02 05:10] LABS: BASOPHILS % 0.5 % (0.0-1.0); EOSINOPHILS # (AUTO) 0.2 (0.0-0.4); EOSINOPHILS % 2.1 % (0.0-6.0); HEMATOCRIT 45.5 % (34.2-44.1); HEMOGLOBIN 15.1 g/dL (12.0-16.0); LYMPHOCYTES # (AUTO) 4.8 (1.0-3.2); LYMPHOCYTES % 62.4 % (18.0-39.1); MEAN CORPUSCULAR HGB CONC 33.2 g/dL (31-35); MEAN CORPUSCULAR VOLUME 105.6 fL (81-99); MONOCYTES # (AUTO) 0.5 (0.2-0.8); MONOCYTES % 6.9 % (4.4-11.3); NEUTROPHILS # (AUTO) 2.2 (2.1-6.9); NEUTROPHILS % 27.8 % (38.7-80.0); PLATELET COUNT 276 x10e3/uL (140-360); RED BLOOD COUNT 4.31 x10e6/uL (3.6-5.1); RED CELL DISTRIBUTION WIDTH 14.9 % (11.7-14.4)
[2023-01-02 05:40] LABS: ALBUMIN 2.9 g/dL (3.5-5.0); ALBUMIN/GLOBULIN RATIO 0.7 (0.8-2.0); CALCIUM 8.9 mg/dL (8.4-10.2); CHOL/HDL RATIO 3.5 (3.0-3.6); CREATININE, SERUM 0.67 mg/dL (0.57-1.11)
[2023-01-02 06:20] LABS: CREATINE KINASE MB 1.7 ng/mL (0-5.0)
[2023-01-02] MEDS ORDERED: IOPAMIDOL 370 MG/ML 100 ML INFUS..BTL INJ ONE (06:28)
[2023-01-02 08:16] LABS: INR 0.98; PROTHROMBIN TIME 13.2 seconds (11.9-14.5)
[2023-01-02 08:18] LABS: PARTIAL THROMBOPLASTIN TIME 75.8 seconds (23.8-35.5)
[2023-01-02] MEDS: INSULIN REGULAR, HUMAN 100 UNIT/1 ML SQ SCH ×4 (08:22→21:10)
[2023-01-02] MEDS ORDERED: PANTOPRAZOLE SOD 40 MG TABEC PO ONE (11:30)
[2023-01-02] MEDS: METOPROLOL TARTRATE 25 MG TAB PO SCH (16:45)
[2023-01-02] MEDS: WARFARIN SOD 3 MG TAB PO SCH (16:47)
[2023-01-03] VITALS (8 sets, daily range): BP systolic 115–149; BP diastolic 69–85
[2023-01-03] MEDS: Morphine 4mg INJECTION 4 MG/ML INJ IV PRN ×4 (00:44→13:00)
[2023-01-03] MEDS: ONDANSETRON HCL INJ 2MG/ML 2ML 2 MG/ML VIAL IV PRN ×3 (00:47→13:00)
[2023-01-03] MEDS: HEPARIN 25,000 UNIT/D5W 250ML 250 ML IV SCH (04:14)
[2023-01-03 05:01] LABS: BASOPHILS % 0.5 % (0.0-1.0); EOSINOPHILS # (AUTO) 0.2 (0.0-0.4); EOSINOPHILS % 2.8 % (0.0-6.0); HEMATOCRIT 45.4 % (34.2-44.1); HEMOGLOBIN 14.8 g/dL (12.0-16.0); LYMPHOCYTES # (AUTO) 3.1 (1.0-3.2); MEAN CORPUSCULAR HEMOGLOBIN 35.2 pg (28-32); MEAN CORPUSCULAR HGB CONC 32.6 g/dL (31-35); MEAN CORPUSCULAR VOLUME 107.8 fL (81-99); MONOCYTES # (AUTO) 0.5 (0.2-0.8); MONOCYTES % 8.2 % (4.4-11.3); NEUTROPHILS # (AUTO) 1.9 (2.1-6.9); NEUTROPHILS % 33.3 % (38.7-80.0); PLATELET COUNT 249 x10e3/uL (140-360); RED BLOOD COUNT 4.21 x10e6/uL (3.6-5.1); RED CELL DISTRIBUTION WIDTH 15.1 % (11.7-14.4)
[2023-01-03 05:17] LABS: ANION GAP 13.4 mmol/L (8-16); CALCIUM 8.7 mg/dL (8.4-10.2); CREATININE, SERUM 0.73 mg/dL (0.57-1.11); POTASSIUM 4.4 mmol/L (3.5-5.1)
[2023-01-03] MEDS: INSULIN REGULAR, HUMAN 100 UNIT/1 ML SQ SCH ×4 (08:00→20:39)
[2023-01-03] MEDS: PANTOPRAZOLE SOD 40 MG TABEC PO SCH (08:30)
[2023-01-03] MEDS: METOPROLOL TARTRATE 25 MG TAB PO SCH ×2 (08:32→17:27)
[2023-01-03 09:35] LABS: BASOPHILS % 0.6 % (0.0-1.0); EOSINOPHILS # (AUTO) 0.2 (0.0-0.4); EOSINOPHILS % 3.7 % (0.0-6.0); HEMATOCRIT 47.1 % (34.2-44.1); HEMOGLOBIN 15.1 g/dL (12.0-16.0); LYMPHOCYTES # (AUTO) 2.9 (1.0-3.2); LYMPHOCYTES % 52.6 % (18.0-39.1); MEAN CORPUSCULAR HEMOGLOBIN 35.2 pg (28-32); MEAN CORPUSCULAR HGB CONC 32.1 g/dL (31-35); MEAN CORPUSCULAR VOLUME 109.8 fL (81-99); MONOCYTES # (AUTO) 0.5 (0.2-0.8); MONOCYTES % 9.6 % (4.4-11.3); NEUTROPHILS # (AUTO) 1.8 (2.1-6.9); NEUTROPHILS % 33.3 % (38.7-80.0); PLATELET COUNT 267 x10e3/uL (140-360); RED BLOOD COUNT 4.29 x10e6/uL (3.6-5.1); RED CELL DISTRIBUTION WIDTH 15.1 % (11.7-14.4)
[2023-01-03 10:34] LABS: INR 1.15; PROTHROMBIN TIME 14.9 seconds (11.9-14.5)
[2023-01-03 10:35] LABS: PARTIAL THROMBOPLASTIN TIME 53.3 seconds (23.8-35.5)
[2023-01-03 10:44] LABS: PLATELET ESTIMATE ADEQUATE; PLATELET MORPHOLOGY COMMENT NORMAL; RBC MORPHOLOGY COMMENT NORMAL
[2023-01-03] MEDS: WARFARIN SOD 3 MG TAB PO SCH (17:27)
[2023-01-03] MEDS: HYDROCODONE/APAP 5MG-325MG TAB PO PRN ×2 (17:30→23:30)
[2023-01-03] MEDS: TRAMADOL HCL 50 MG TAB PO PRN (19:40)
[2023-01-04] MEDS: TRAMADOL HCL 50 MG TAB PO PRN ×4 (01:38→20:52)
[2023-01-04] MEDS: HEPARIN 25,000 UNIT/D5W 250ML 250 ML IV SCH (03:58)
[2023-01-04 04:00] VITALS: BP 116/75
[2023-01-04] MEDS: HYDROCODONE/APAP 5MG-325MG TAB PO PRN ×4 (05:24→23:53)
[2023-01-04] MEDS: INSULIN REGULAR, HUMAN 100 UNIT/1 ML SQ SCH ×4 (08:00→21:02)
[2023-01-04 08:10] VITALS: BP 118/70
[2023-01-04] MEDS: PANTOPRAZOLE SOD 40 MG TABEC PO SCH (08:30)
[2023-01-04] MEDS: METOPROLOL TARTRATE 25 MG TAB PO SCH ×2 (09:49→17:40)
[2023-01-04 12:01] VITALS: BP 128/60
[2023-01-04 16:03] VITALS: BP 122/57
[2023-01-04] MEDS: WARFARIN SOD 3 MG TAB PO SCH (17:39)
[2023-01-04 19:12] LABS: INR 1.49; PROTHROMBIN TIME 18.1 seconds (11.9-14.5)
[2023-01-04 20:00] VITALS: BP 123/62
[2023-01-04] MEDS: LIDOCAINE 4% PATCH TP SCH (20:51)
[2023-01-05] VITALS: BP 130/71
[2023-01-05] MEDS: TRAMADOL HCL 50 MG TAB PO PRN ×3 (02:52→14:46)
[2023-01-05 04:00] VITALS: BP 132/61
[2023-01-05 04:58] LABS: BASOPHILS % 0.7 % (0.0-1.0); EOSINOPHILS # (AUTO) 0.2 (0.0-0.4); EOSINOPHILS % 2.8 % (0.0-6.0); HEMATOCRIT 44.7 % (34.2-44.1); HEMOGLOBIN 14.3 g/dL (12.0-16.0); LYMPHOCYTES # (AUTO) 2.9 (1.0-3.2); LYMPHOCYTES % 52.1 % (18.0-39.1); MEAN CORPUSCULAR HEMOGLOBIN 34.9 pg (28-32); MONOCYTES # (AUTO) 0.5 (0.2-0.8); MONOCYTES % 8.9 % (4.4-11.3); NEUTROPHILS % 35.3 % (38.7-80.0); PLATELET COUNT 305 x10e3/uL (140-360); RED CELL DISTRIBUTION WIDTH 14.6 % (11.7-14.4)
[2023-01-05 05:08] LABS: INR 1.53; PROTHROMBIN TIME 18.5 seconds (11.9-14.5)
[2023-01-05 05:18] LABS: ALBUMIN 2.6 g/dL (3.5-5.0); ALBUMIN/GLOBULIN RATIO 0.7 (0.8-2.0); ANION GAP 13.1 mmol/L (8-16); CALCIUM 8.4 mg/dL (8.4-10.2); CREATININE, SERUM 0.7 mg/dL (0.57-1.11); POTASSIUM 4.1 mmol/L (3.5-5.1)
[2023-01-05] MEDS: HYDROCODONE/APAP 5MG-325MG TAB PO PRN ×2 (05:51→11:54)
[2023-01-05 07:30] VITALS: BP 131/88
[2023-01-05] MEDS: INSULIN REGULAR, HUMAN 100 UNIT/1 ML SQ SCH ×2 (07:30→11:30)
[2023-01-05] MEDS: LIDOCAINE 4% PATCH TP SCH (08:24)
[2023-01-05] MEDS: PANTOPRAZOLE SOD 40 MG TABEC PO SCH (08:24)
[2023-01-05] MEDS: METOPROLOL TARTRATE 25 MG TAB PO SCH (08:26)
[2023-01-05] MEDS ORDERED: APIXABAN 5 MG TABLET PO SCH (09:00)
== END 2023-01-05 15:53 | disposition home or self-care (01) | DRG 175 ==
LOC: ER 22:40 → ERHOLD 01-01 01:39 → MED/SURG 01-01 03:00
PROVIDERS: ADMIT Family Medicine; ATTEND Family Medicine
DX: I26.99 Other pulmonary embolism without acute cor pulmonale (principal); J96.01 Acute respiratory failure with hypoxia; Z20.822 Contact with and (suspected) exposure to COVID-19; Z86.73 Personal history of transient ischemic attack (TIA), and cerebral infarction without residual deficits; Z91.199 Patient's noncompliance with other medical treatment and regimen due to unspecified reason; E78.5 Hyperlipidemia, unspecified; I27.20 Pulmonary hypertension, unspecified; I25.10 Atherosclerotic heart disease of native coronary artery without angina pectoris; R74.01 Elevation of levels of liver transaminase levels; I25.2 Old myocardial infarction; E11.69 Type 2 diabetes mellitus with other specified complication; I11.0 Hypertensive heart disease with heart failure; Z91.14 Patient's other noncompliance with medication regimen; I50.813 Acute on chronic right heart failure; T45.516A Underdosing of anticoagulants, initial encounter
CPT/HCPCS: 36415; 71045; 71046; 71260; 74177; 80048; 80053; 80061; 82550; 82553; 82948; 83690; 83880; 84484; 85025; 85610; 85730; 93005; 93306; 93970; 94799; 96372; 99284; J1644; J1817; J1940; J2270; J2405; Q9967

== ENCOUNTER 2023-03-31 09:08 | Observation (INO) | payer MEDICARE ==
[~2023-03-31] VITALS: Ht 167.6 cm; Wt 84.8 kg
[~2023-03-31 09:08] MED LIST changes: +POTASSIUM PO; +ZYRTEC10 MG
[2023-03-31] MEDS ORDERED: SODIUM CHLORIDE 0.9% 500ML 500 ML IV ONE (09:30)
[2023-03-31] MEDS ORDERED: METOPROLOL TARTRATE INJ 1 MG/ML VIAL IV ONE (09:30)
[2023-03-31] MEDS ORDERED: ONDANSETRON HCL INJ 2MG/ML 2ML 2 MG/ML VIAL IV STA (09:46)
[2023-03-31] MEDS ORDERED: Morphine 2mg Syringe 2 MG/ML SYR IV STA (09:46)
[2023-03-31 10:07] LABS: INR 1.08; PARTIAL THROMBOPLASTIN TIME 29.2 seconds (23.8-35.5); PROTHROMBIN TIME 14.5 seconds (11.9-14.5)
[2023-03-31 10:10] LABS: BASOPHILS # (AUTO) 0.1 (0.0-0.1); BASOPHILS % 0.6 % (0.0-1.0); EOSINOPHILS # (AUTO) 0.1 (0.0-0.4); EOSINOPHILS % 1.3 % (0.0-6.0); HEMATOCRIT 50.9 % (34.2-44.1); HEMOGLOBIN 17.1 g/dL (12.0-16.0); LYMPHOCYTES # (AUTO) 5.8 (1.0-3.2); LYMPHOCYTES % 67.6 % (18.0-39.1); MEAN CORPUSCULAR HEMOGLOBIN 36.1 pg (28-32); MEAN CORPUSCULAR HGB CONC 33.6 g/dL (31-35); MEAN CORPUSCULAR VOLUME 107.4 fL (81-99); MONOCYTES # (AUTO) 0.5 (0.2-0.8); NEUTROPHILS # (AUTO) 2.1 (2.1-6.9); NEUTROPHILS % 24.3 % (38.7-80.0); PLATELET COUNT 313 x10e3/uL (140-360); RED BLOOD COUNT 4.74 x10e6/uL (3.6-5.1); RED CELL DISTRIBUTION WIDTH 12.5 % (11.7-14.4)
[2023-03-31 12:17] LABS: ANION GAP 18.3 mmol/L (8-16); BLOOD UREA NITROGEN 16 mg/dL (7-26); BUN/CREATININE RATIO 16 (6-25); CARBON DIOXIDE 18 mmol/L (22-29); CHLORIDE 104 mmol/L (98-107); CREATININE, SERUM 0.97 mg/dL (0.57-1.11); GLUCOSE 344 mg/dL (74-118); LIPASE 76 U/L (8-78); POTASSIUM 3.3 mmol/L (3.5-5.1); SODIUM 137 mmol/L (136-145)
[2023-03-31 12:18] LABS: ALANINE AMINOTRANSFERASE 48 IU/L (0-55); ALBUMIN 3.5 g/dL (3.5-5.0); ALBUMIN/GLOBULIN RATIO 0.7 (0.8-2.0); ALKALINE PHOSPHATASE 283 IU/L (40-150); CALCIUM 9.2 mg/dL (8.4-10.2); CREATINE KINASE 40 IU/L (29-168); MAGNESIUM 1.4 MG/DL (1.3-2.1)
[2023-03-31] MEDS ORDERED: NITROGLYCERIN 0.4 MG SUBL SL PRN (12:30)
[2023-03-31] MEDS ORDERED: ONDANSETRON HCL INJ 2MG/ML 2ML 2 MG/ML VIAL IV PRN (12:30)
[2023-03-31] MEDS: FAMOTIDINE 20 MG/2 ML VIAL IV SCH ×2 (12:34→21:55)
[2023-03-31] MEDS ORDERED: SODIUM CHLORIDE 0.9% 1000ML 1,000 ML IV SCH (12:45)
[2023-03-31] MEDS ORDERED: IOPAMIDOL 370 MG/ML 100 ML INFUS..BTL INJ ONE (12:54)
[2023-03-31] MEDS: Morphine 2mg Syringe 2 MG/ML SYR IV PRN ×3 (13:21→22:03)
[2023-03-31 15:32] LABS: LYMPHOCYTES % (MANUAL) 61 % (19-48); MONOCYTES % (MANUAL) 8 % (3.4-9.0); NEUTROPHILS % (MANUAL) 28 % (40-74); PLATELET ESTIMATE ADEQUATE; PLATELET MORPHOLOGY COMMENT NORMAL; RBC MORPHOLOGY COMMENT NORMAL
[2023-03-31 15:39] LABS: CREATINE KINASE MB 2.3 ng/mL (0-5.0)
[2023-03-31] MEDS ORDERED: ELIQUIS5 MG PO (15:52)
[2023-03-31 15:55] VITALS: BP 147/89; PULSE 87; RESP 18; O2SAT 99
[2023-03-31 17:02] VITALS: BP 147/89; RESP 18; TEMP 209.1; O2SAT 99
[2023-03-31 17:03] VITALS: BP 139/98; PULSE 102; RESP 17; TEMP 97.4; O2SAT 93
[2023-03-31] MEDS ORDERED: TRAMADOL HCL 50 MG TAB PO PRN (19:15)
[2023-03-31] MEDS ORDERED: APIXABAN 5 MG TABLET PO SCH (19:15)
[2023-03-31 20:00] VITALS: BP 116/80; PULSE 90; RESP 18; TEMP 97.9; O2SAT 97
[2023-03-31] MEDS: APIXABAN 5 MG TABLET PO SCH (21:56)
[2023-04-01] VITALS (8 sets, daily range): BP systolic 124–137; BP diastolic 62–101; PULSE 56–95; RESP 16–20; TEMP 96.3–98.2; O2SAT 92–100
[2023-04-01] MEDS: Morphine 2mg Syringe 2 MG/ML SYR IV PRN ×5 (01:35→17:54)
[2023-04-01] MEDS ORDERED: KETOROLAC TROMETHAMINE 30 MG/ML VIAL IV STA (04:31)
[2023-04-01 05:02] LABS: BASOPHILS # (AUTO) 0.1 (0.0-0.1); BASOPHILS % 0.6 % (0.0-1.0); EOSINOPHILS # (AUTO) 0.1 (0.0-0.4); EOSINOPHILS % 0.6 % (0.0-6.0); HEMATOCRIT 49.1 % (34.2-44.1); HEMOGLOBIN 16.4 g/dL (12.0-16.0); LYMPHOCYTES # (AUTO) 5.6 (1.0-3.2); LYMPHOCYTES % 62.2 % (18.0-39.1); MEAN CORPUSCULAR HEMOGLOBIN 36.2 pg (28-32); MEAN CORPUSCULAR HGB CONC 33.4 g/dL (31-35); MEAN CORPUSCULAR VOLUME 108.4 fL (81-99); MONOCYTES # (AUTO) 0.5 (0.2-0.8); NEUTROPHILS # (AUTO) 2.7 (2.1-6.9); NEUTROPHILS % 30.3 % (38.7-80.0); PLATELET COUNT 234 x10e3/uL (140-360); RED BLOOD COUNT 4.53 x10e6/uL (3.6-5.1); RED CELL DISTRIBUTION WIDTH 13.5 % (11.7-14.4)
[2023-04-01 05:26] LABS: ALBUMIN 2.9 g/dL (3.5-5.0); ALBUMIN/GLOBULIN RATIO 0.7 (0.8-2.0); ANION GAP 14.5 mmol/L (8-16); CALCIUM 8.6 mg/dL (8.4-10.2); CHOL/HDL RATIO 3.7 (3.0-3.6); CREATININE, SERUM 0.78 mg/dL (0.57-1.11); POTASSIUM 4.5 mmol/L (3.5-5.1)
[2023-04-01 05:48] LABS: CREATINE KINASE MB 6.8 ng/mL (0-5.0)
[2023-04-01] MEDS: FAMOTIDINE 20 MG/2 ML VIAL IV SCH (07:53)
[2023-04-01] MEDS: INSULIN LISPRO 100 UNIT/1 ML 3ML VIAL SQ SCH ×3 (07:54→16:29)
[2023-04-01] MEDS: APIXABAN 5 MG TABLET PO SCH (07:57)
[2023-04-01] MEDS ORDERED: INSULIN ASPART 5 UNIT SC SCH (08:00)
[2023-04-01 08:05] LABS: EOSINOPHILS % (MANUAL) 1 % (0-7); LYMPHOCYTES % (MANUAL) 63 % (19-48); MONOCYTES % (MANUAL) 4 % (3.4-9.0); NEUTROPHILS % (MANUAL) 29 % (40-74); PLATELET ESTIMATE ADEQUATE; PLATELET MORPHOLOGY COMMENT NORMAL; RBC MORPHOLOGY COMMENT ABNORMAL
[2023-04-01] MEDS ORDERED: METOPROLOL TARTRATE 25 MG TAB PO SCH (09:00)
[2023-04-01] MEDS: METOPROLOL TARTRATE 25 MG TAB PO SCH ×2 (09:54→16:29)
[2023-04-01 10:56] LABS: CREATINE KINASE MB 12.5 ng/mL (0-5.0)
[2023-04-01] MEDS ORDERED: ASPIRIN 81 MG CHEW TAB ONE (11:33)
[2023-04-01] MEDS ORDERED: CLOPIDOGREL BISULFATE 75 MG TAB PO ONE (12:45)
[2023-04-01] MEDS ORDERED: DEXTROSE 50% SYRINGE 50 ML IV PRN (13:00)
[2023-04-01] MEDS ORDERED: INSULIN LISPRO 100 UNIT/1 ML 3ML VIAL SQ SCH (16:30)
[2023-04-01 17:50] LABS: CREATINE KINASE MB 11.7 ng/mL (0-5.0)
[2023-04-01] MEDS ORDERED: ENOXAPARIN INJ 80 MG/0.8 ML SYR SC SCH (21:00)
[2023-04-02] MEDS ORDERED: CLOPIDOGREL BISULFATE 75 MG TAB PO SCH (09:00)
[2023-04-02] MEDS ORDERED: ASPIRIN 81 MG CHEW TAB PO SCH (09:00)
[2023-04-02] MEDS ORDERED: METFORMIN HCL 500 MG TAB PO SCH (17:00)
== END 2023-04-01 21:00 | disposition short-term general hospital (02) ==
LOC: ER 09:11 → ERHOLD 12:20 → MED/SURG 15:40
PROVIDERS: ADMIT Family Medicine; ATTEND Family Medicine
DX: R07.89 Other chest pain (principal); R77.8 Other specified abnormalities of plasma proteins; I10 Essential (primary) hypertension; E78.00 Pure hypercholesterolemia, unspecified; I48.91 Unspecified atrial fibrillation; Z86.73 Personal history of transient ischemic attack (TIA), and cerebral infarction without residual deficits; R74.01 Elevation of levels of liver transaminase levels; E11.9 Type 2 diabetes mellitus without complications; Z79.02 Long term (current) use of antithrombotics/antiplatelets; Z20.822 Contact with and (suspected) exposure to COVID-19; Z79.4 Long term (current) use of insulin; Z79.84 Long term (current) use of oral hypoglycemic drugs; Z79.899 Other long term (current) drug therapy; Z68.30 Body mass index [BMI] 30.0-30.9, adult; Z86.711 Personal history of pulmonary embolism; Z86.718 Personal history of other venous thrombosis and embolism; Z82.49 Family history of ischemic heart disease and other diseases of the circulatory system
CPT/HCPCS: 0223U; 36415 ×2; 71045; 71260; 80053 ×2; 80061; 82550 ×2; 82553 ×2; 82948 ×2; 83690; 83735; 83880; 84484 ×2; 85025 ×2; 85379; 85610; 85730; 93005; 96372; 99284; G0378 ×2; J1885; J2270 ×2; J2405; J7030; J7040; Q9967

== ENCOUNTER 2023-04-15 12:18 | Emergency (ER) | payer MEDICARE ==
[~2023-04-15] VITALS: Ht 167.6 cm; Wt 81.6 kg
[2023-04-15] MEDS ORDERED: SODIUM CHLORIDE FLUSH 10 ML SYR IV PRN (12:30)
[2023-04-15] MEDS ORDERED: ASPIRIN 81 MG CHEW TAB PO ONE (12:30)
[2023-04-15 12:57] LABS: BASOPHILS # (AUTO) 0.1 (0.0-0.1); BASOPHILS % 0.7 % (0.0-1.0); EOSINOPHILS # (AUTO) 0.1 (0.0-0.4); EOSINOPHILS % 1.4 % (0.0-6.0); HEMATOCRIT 45.2 % (34.2-44.1); HEMOGLOBIN 15.4 g/dL (12.0-16.0); LYMPHOCYTES # (AUTO) 3.8 (1.0-3.2); LYMPHOCYTES % 47.6 % (18.0-39.1); MEAN CORPUSCULAR HEMOGLOBIN 36.1 pg (28-32); MEAN CORPUSCULAR HGB CONC 34.1 g/dL (31-35); MEAN CORPUSCULAR VOLUME 105.9 fL (81-99); MONOCYTES # (AUTO) 0.6 (0.2-0.8); MONOCYTES % 7.4 % (4.4-11.3); NEUTROPHILS # (AUTO) 3.4 (2.1-6.9); NEUTROPHILS % 42.8 % (38.7-80.0); PLATELET COUNT 624 x10e3/uL (140-360); RED BLOOD COUNT 4.27 x10e6/uL (3.6-5.1); RED CELL DISTRIBUTION WIDTH 12.8 % (11.7-14.4)
[2023-04-15] MEDS ORDERED: ONDANSETRON HCL INJ 2MG/ML 2ML 2 MG/ML VIAL ONE (13:00)
[2023-04-15] MEDS ORDERED: Morphine 4mg INJECTION 4 MG/ML INJ IV ONE (13:00)
[2023-04-15] MEDS ORDERED: Morphine 4mg INJECTION 4 MG/ML INJ ONE (13:00)
[2023-04-15] MEDS ORDERED: ONDANSETRON HCL INJ 2MG/ML 2ML 2 MG/ML VIAL IV STA ×2 (13:04→13:07)
[2023-04-15] MEDS ORDERED: IOPAMIDOL 370 MG/ML 100 ML INFUS..BTL INJ ONE (13:12)
[2023-04-15 13:17] LABS: ANION GAP 17.4 mmol/L (8-16); CREATININE, SERUM 0.93 mg/dL (0.57-1.11); POTASSIUM 3.4 mmol/L (3.5-5.1)
[2023-04-15 13:18] LABS: ALBUMIN 3.7 g/dL (3.5-5.0); ALBUMIN/GLOBULIN RATIO 0.7 (0.8-2.0); CALCIUM 9.6 mg/dL (8.4-10.2)
[2023-04-15] MEDS ORDERED: KETOROLAC TROMETHAMINE 30 MG/ML VIAL IV STA (16:05)
[2023-04-15] MEDS ORDERED: Morphine 2mg Syringe 2 MG/ML SYR IV ONE ×2 (17:45→21:00)
[2023-04-15] MEDS ORDERED: SODIUM CHLORIDE 0.9% 1000ML 1,000 ML ONE (18:19)
[2023-04-15] MEDS ORDERED: METOPROLOL TARTRATE 25 MG TAB PO ONE (19:45)
[2023-04-15 21:26] VITALS: O2SAT 98
== END 2023-04-15 22:13 | disposition other institution (70) ==
LOC: ER 12:22
DX: R06.00 Dyspnea, unspecified (principal); R07.9 Chest pain, unspecified; I48.91 Unspecified atrial fibrillation; E11.9 Type 2 diabetes mellitus without complications; Z20.822 Contact with and (suspected) exposure to COVID-19; Z86.711 Personal history of pulmonary embolism
CPT/HCPCS: 0223U; 36415; 36569; 71045 ×2; 71260; 80053; 83880; 84484; 85025; 93005; 94760; 99284; J1885; J2270 ×2; J2405; J7030; Q9967

== ENCOUNTER 2023-05-14 09:57 | Inpatient (IN) | payer MEDICARE ==
[~2023-05-14] VITALS: Ht 167.6 cm; Wt 74.8 kg
[2023-05-14 10:21] LABS: BASOPHILS # (AUTO) 0.1 (0.0-0.1); BASOPHILS % 0.7 % (0.0-1.0); EOSINOPHILS # (AUTO) 0.2 (0.0-0.4); EOSINOPHILS % 2.7 % (0.0-6.0); HEMATOCRIT 39.3 % (34.2-44.1); HEMOGLOBIN 13.2 g/dL (12.0-16.0); LYMPHOCYTES # (AUTO) 4.8 (1.0-3.2); LYMPHOCYTES % 59.9 % (18.0-39.1); MEAN CORPUSCULAR HEMOGLOBIN 34.9 pg (28-32); MEAN CORPUSCULAR HGB CONC 33.6 g/dL (31-35); MONOCYTES # (AUTO) 0.8 (0.2-0.8); MONOCYTES % 9.8 % (4.4-11.3); NEUTROPHILS # (AUTO) 2.1 (2.1-6.9); NEUTROPHILS % 26.7 % (38.7-80.0); PLATELET COUNT 456 x10e3/uL (140-360); RED BLOOD COUNT 3.78 x10e6/uL (3.6-5.1); RED CELL DISTRIBUTION WIDTH 12.5 % (11.7-14.4)
[2023-05-14] MEDS ORDERED: ONDANSETRON HCL INJ 2MG/ML 2ML 2 MG/ML VIAL IV STA (10:23)
[2023-05-14] MEDS ORDERED: Morphine 2mg Syringe 2 MG/ML SYR IV STA (10:23)
[2023-05-14 10:34] LABS: INR 0.87; PROTHROMBIN TIME 12.4 seconds (11.9-14.5)
[2023-05-14 10:35] LABS: PARTIAL THROMBOPLASTIN TIME 27.1 seconds (23.8-35.5)
[2023-05-14 10:39] LABS: ALBUMIN 3.4 g/dL (3.5-5.0); ALBUMIN/GLOBULIN RATIO 0.9 (0.8-2.0); ANION GAP 15.2 mmol/L (8-16); CALCIUM 8.7 mg/dL (8.4-10.2); CREATININE, SERUM 0.87 mg/dL (0.57-1.11); POTASSIUM 3.2 mmol/L (3.5-5.1)
[2023-05-14 10:43] LABS: MAGNESIUM 1.1 MG/DL (1.3-2.1)
[2023-05-14] MEDS ORDERED: MAGNESIUM SULFATE 2GM/50ML 50 ML IV ONE (10:45)
[2023-05-14] MEDS ORDERED: POTASSIUM CHLORIDE 20 MEQ TAB CR PO STA (11:10)
[2023-05-14] MEDS ORDERED: ONDANSETRON HCL INJ 2MG/ML 2ML 2 MG/ML VIAL IV PRN (11:30)
[2023-05-14] MEDS ORDERED: NITROGLYCERIN 0.4 MG SUBL SL PRN (11:30)
[2023-05-14] MEDS: INSULIN LISPRO 100 UNIT/1 ML 3ML VIAL SQ SCH ×4 (12:00→21:00)
[2023-05-14] MEDS: APIXABAN 5 MG TABLET PO SCH (12:00)
[2023-05-14] MEDS ORDERED: TRAMADOL HCL 50 MG TAB PO PRN (12:00)
[2023-05-14] MEDS: Morphine 2mg Syringe 2 MG/ML SYR IV PRN ×3 (14:18→22:19)
[2023-05-14] MEDS ORDERED: DEXTROSE 50% SYRINGE 50 ML IV PRN (14:30)
[2023-05-14 14:44] VITALS: BP 150/72; PULSE 67; RESP 18; TEMP 97.8; O2SAT 98
[2023-05-14 14:52] VITALS: BP 150/72; PULSE 67; RESP 18; TEMP 97.8; O2SAT 98
[2023-05-14] MEDS ORDERED: LIPITOR20 MG PO (15:20)
[2023-05-14] MEDS ORDERED: PLAVIX75 MG PO (15:20)
[2023-05-14] MEDS ORDERED: LASIX20 MG PO (15:20)
[2023-05-14] MEDS ORDERED: REVATIO20 MG PO (15:20)
[2023-05-14] MEDS ORDERED: RANOLAZINE ER500 MG (15:20)
[2023-05-14 16:00] VITALS: BP 104/75; PULSE 79; RESP 18; TEMP 97.7; O2SAT 97
[2023-05-14] MEDS: METOPROLOL TARTRATE 25 MG TAB PO SCH (16:24)
[2023-05-14 20:00] VITALS: BP 117/61; PULSE 77; RESP 17; TEMP 97.8; O2SAT 93
[2023-05-14 20:07] VITALS: BP 104/75; PULSE 79; RESP 18; TEMP 97.7; O2SAT 97
[2023-05-14] MEDS: INSULIN GLARGINE 100 UNITS/ML VIAL SQ SCH (21:00)
[2023-05-15] VITALS (7 sets, daily range): BP systolic 115–132; BP diastolic 58–76; PULSE 82–92; RESP 18–21; TEMP 98.5–99.7; O2SAT 93–99
[2023-05-15] MEDS: APIXABAN 5 MG TABLET PO SCH ×2 (01:29→11:34)
[2023-05-15] MEDS: Morphine 2mg Syringe 2 MG/ML SYR IV PRN ×7 (01:47→21:20)
[2023-05-15 03:42] LABS: CREATINE KINASE 25 IU/L (29-168)
[2023-05-15 05:14] LABS: BASOPHILS % 0.4 % (0.0-1.0); EOSINOPHILS # (AUTO) 0.3 (0.0-0.4); EOSINOPHILS % 3.2 % (0.0-6.0); HEMATOCRIT 41.3 % (34.2-44.1); HEMOGLOBIN 13.5 g/dL (12.0-16.0); LYMPHOCYTES # (AUTO) 4.7 (1.0-3.2); LYMPHOCYTES % 51.4 % (18.0-39.1); MEAN CORPUSCULAR HEMOGLOBIN 34.8 pg (28-32); MEAN CORPUSCULAR HGB CONC 32.7 g/dL (31-35); MEAN CORPUSCULAR VOLUME 106.4 fL (81-99); MONOCYTES # (AUTO) 0.9 (0.2-0.8); NEUTROPHILS # (AUTO) 3.2 (2.1-6.9); NEUTROPHILS % 34.8 % (38.7-80.0); PLATELET COUNT 384 x10e3/uL (140-360); RED BLOOD COUNT 3.88 x10e6/uL (3.6-5.1); RED CELL DISTRIBUTION WIDTH 12.7 % (11.7-14.4)
[2023-05-15 05:47] LABS: ANION GAP 11.7 mmol/L (8-16); CALCIUM 8.3 mg/dL (8.4-10.2); CREATININE, SERUM 0.64 mg/dL (0.57-1.11); MAGNESIUM 1.4 MG/DL (1.3-2.1); POTASSIUM 3.7 mmol/L (3.5-5.1)
[2023-05-15 06:01] LABS: CREATINE KINASE 28 IU/L (29-168)
[2023-05-15] MEDS: INSULIN LISPRO 100 UNIT/1 ML 3ML VIAL SQ SCH ×7 (07:30→21:00)
[2023-05-15] MEDS: METOPROLOL TARTRATE 25 MG TAB PO SCH ×2 (08:26→16:54)
[2023-05-15] MEDS: FUROSEMIDE 20 MG TAB PO SCH (09:51)
[2023-05-15] MEDS: RANOLAZINE 500 MG TABSR PO SCH ×2 (09:51→16:54)
[2023-05-15] MEDS: CLOPIDOGREL BISULFATE 75 MG TAB PO SCH (09:51)
[2023-05-15] MEDS ORDERED: ATORVASTATIN 40 MG TAB PO SCH (21:00)
[2023-05-15] MEDS: INSULIN GLARGINE 100 UNITS/ML VIAL SQ SCH (21:28)
[2023-05-16] VITALS: BP 119/68; PULSE 86; RESP 20; TEMP 99.2; O2SAT 94
[2023-05-16] MEDS: APIXABAN 5 MG TABLET PO SCH (00:14)
[2023-05-16] MEDS: Morphine 2mg Syringe 2 MG/ML SYR IV PRN ×3 (01:51→08:32)
[2023-05-16 04:00] VITALS: BP 127/68; PULSE 86; RESP 17; TEMP 98.7; O2SAT 95
[2023-05-16 05:23] LABS: BASOPHILS # (AUTO) 0.1 (0.0-0.1); BASOPHILS % 0.9 % (0.0-1.0); EOSINOPHILS # (AUTO) 0.2 (0.0-0.4); EOSINOPHILS % 3.9 % (0.0-6.0); HEMATOCRIT 38.7 % (34.2-44.1); HEMOGLOBIN 13.1 g/dL (12.0-16.0); LYMPHOCYTES # (AUTO) 2.3 (1.0-3.2); LYMPHOCYTES % 39.2 % (18.0-39.1); MEAN CORPUSCULAR HEMOGLOBIN 35.1 pg (28-32); MEAN CORPUSCULAR HGB CONC 33.9 g/dL (31-35); MEAN CORPUSCULAR VOLUME 103.8 fL (81-99); MONOCYTES # (AUTO) 0.6 (0.2-0.8); MONOCYTES % 10.1 % (4.4-11.3); NEUTROPHILS # (AUTO) 2.7 (2.1-6.9); NEUTROPHILS % 45.7 % (38.7-80.0); PLATELET COUNT 372 x10e3/uL (140-360); RED BLOOD COUNT 3.73 x10e6/uL (3.6-5.1); RED CELL DISTRIBUTION WIDTH 12.5 % (11.7-14.4)
[2023-05-16 06:12] LABS: ALBUMIN 2.8 g/dL (3.5-5.0); ALBUMIN/GLOBULIN RATIO 0.8 (0.8-2.0); ANION GAP 11.9 mmol/L (8-16); CALCIUM 8.6 mg/dL (8.4-10.2); CREATININE, SERUM 0.68 mg/dL (0.57-1.11); POTASSIUM 3.9 mmol/L (3.5-5.1)
[2023-05-16 06:42] LABS: CHOL/HDL RATIO 2.6 (3.0-3.6)
[2023-05-16 06:59] LABS: THYROID STIMULATING HORMONE 1.868 uIU/mL (0.350-4.940)
[2023-05-16] MEDS: CLOPIDOGREL BISULFATE 75 MG TAB PO SCH (08:27)
[2023-05-16] MEDS: FUROSEMIDE 20 MG TAB PO SCH (08:27)
[2023-05-16] MEDS: RANOLAZINE 500 MG TABSR PO SCH ×2 (08:31→16:47)
[2023-05-16] MEDS: METOPROLOL TARTRATE 25 MG TAB PO SCH ×2 (08:31→16:46)
[2023-05-16] MEDS: INSULIN LISPRO 100 UNIT/1 ML 3ML VIAL SQ SCH ×6 (09:53→16:43)
[2023-05-16] MEDS ORDERED: HYDROCODONE/APAP 5MG-325MG TAB PO PRN (11:00)
[2023-05-16] MEDS ORDERED: ACETAMINOPHEN 650 MG SUPP PR PRN (11:00)
[2023-05-16 11:34] VITALS: BP 119/65; PULSE 77; RESP 18; TEMP 97.9; O2SAT 95
[2023-05-16] MEDS: DOCUSATE SODIUM 100 MG CAP PO SCH ×2 (11:49→16:46)
[2023-05-16 16:19] VITALS: BP 114/60; PULSE 80; RESP 17; TEMP 97.9; O2SAT 95
[2023-05-16 19:22] VITALS: BP 120/74; PULSE 74; RESP 21; TEMP 98.6; O2SAT 93
== END 2023-05-16 19:40 | disposition home or self-care (01) | DRG 313 ==
LOC: ER 09:59 → ERHOLD 11:20 → MED/SURG 14:05 → OBSVTOIN 05-15 08:34
PROVIDERS: ADMIT Family Medicine; ATTEND Family Medicine
DX: R07.9 Chest pain, unspecified (principal); I25.10 Atherosclerotic heart disease of native coronary artery without angina pectoris; I48.91 Unspecified atrial fibrillation; E11.9 Type 2 diabetes mellitus without complications; E87.6 Hypokalemia; E83.42 Hypomagnesemia; E78.5 Hyperlipidemia, unspecified; I27.20 Pulmonary hypertension, unspecified; R53.81 Other malaise; Z90.49 Acquired absence of other specified parts of digestive tract; I25.2 Old myocardial infarction; Z86.711 Personal history of pulmonary embolism; Z87.891 Personal history of nicotine dependence; Z79.899 Other long term (current) drug therapy; Z86.73 Personal history of transient ischemic attack (TIA), and cerebral infarction without residual deficits; Z82.49 Family history of ischemic heart disease and other diseases of the circulatory system; Z95.5 Presence of coronary angioplasty implant and graft; Z20.822 Contact with and (suspected) exposure to COVID-19
CPT/HCPCS: 36415; 71045; 80048; 80053; 80061; 82550; 82948; 83735; 83880; 84443; 84484; 85025; 85610; 85730; 93005; 93306; 99284; G0378; J1815; J2270; J2405; J3475

== ENCOUNTER 2024-05-13 16:06 | Emergency (ER) | payer MEDICARE ==
[~2024-05-13] VITALS: Ht 167.6 cm; Wt 77.1 kg
[2024-05-13 16:06] VITALS: TEMP 97
[~2024-05-13 16:06] MED LIST changes: +LASIX20 MG PO; +LIPITOR20 MG PO; +NAPROXEN250 MG PO; +PLAVIX75 MG PO; +RANOLAZINE ER500 MG; +REVATIO20 MG PO
[2024-05-13 16:36] LABS: BASOPHILS % 0.4 % (0.0-1.0); EOSINOPHILS # (AUTO) 0.1 (0.0-0.4); EOSINOPHILS % 0.9 % (0.0-6.0); HEMATOCRIT 48.9 % (34.2-44.1); HEMOGLOBIN 16.3 g/dL (12.0-16.0); LYMPHOCYTES % 44.5 % (18.0-39.1); MEAN CORPUSCULAR HEMOGLOBIN 34.1 pg (28-32); MEAN CORPUSCULAR HGB CONC 33.3 g/dL (31-35); MEAN CORPUSCULAR VOLUME 102.3 fL (81-99); MONOCYTES # (AUTO) 0.6 (0.2-0.8); MONOCYTES % 6.8 % (4.4-11.3); NEUTROPHILS # (AUTO) 4.2 (2.1-6.9); NEUTROPHILS % 47.1 % (38.7-80.0); PLATELET COUNT 322 x10e3/uL (140-360); RED BLOOD COUNT 4.78 x10e6/uL (3.6-5.1); RED CELL DISTRIBUTION WIDTH 15.1 % (11.7-14.4); WHITE BLOOD COUNT 8.96 x10e3/uL (4.8-10.8)
[2024-05-13] MEDS: ONDANSETRON HCL INJ 2MG/ML 2ML 2 MG/ML VIAL IV STA (16:36)
[2024-05-13] MEDS: Morphine 2mg Syringe 2 MG/ML SYR IV STA (16:36)
[2024-05-13] MEDS: ASPIRIN 81 MG CHEW TAB PO STA (16:36)
[2024-05-13 16:43] LABS: INR 2.01; PROTHROMBIN TIME 23.9 seconds (11.9-14.5)
[2024-05-13 16:44] LABS: PARTIAL THROMBOPLASTIN TIME 32.9 seconds (23.8-35.5)
[2024-05-13 16:52] LABS: ALANINE AMINOTRANSFERASE 89 IU/L (0-55); ALBUMIN 3.4 g/dL (3.5-5.0); ALBUMIN/GLOBULIN RATIO 0.8 (0.8-2.0); ALKALINE PHOSPHATASE 313 IU/L (40-150); ANION GAP 17.4 mmol/L (8-16); BILIRUBIN,TOTAL 1.3 mg/dL (0.2-1.2); BLOOD UREA NITROGEN 12 mg/dL (7-26); BUN/CREATININE RATIO 14 (6-25); CALCIUM 8.8 mg/dL (8.4-10.2); CARBON DIOXIDE 16 mmol/L (22-29); CHLORIDE 108 mmol/L (98-107); CREATININE, SERUM 0.87 mg/dL (0.57-1.11); EST GLOMERULAR FILTRATION RATE 71 ML/MIN (>=60); GLUCOSE 302 mg/dL (74-118); MAGNESIUM 1.4 MG/DL (1.3-2.1); SODIUM 138 mmol/L (136-145); TOTAL PROTEIN 7.9 g/dL (6.5-8.1)
[2024-05-13 16:55] LABS: POTASSIUM 3.4 mmol/L (3.5-5.1)
[2024-05-13 17:06] LABS: TROPONIN I < 0.001 ng/mL (0-0.300)
[2024-05-13 18:58] VITALS: PULSE 79; RESP 20
[2024-05-13 19:24] VITALS: BP 161/80; PULSE 79; RESP 20; O2SAT 94
== END 2024-05-13 19:30 | disposition short-term general hospital (02) ==
LOC: ER 16:15
DX: R07.9 Chest pain, unspecified (principal); I25.10 Atherosclerotic heart disease of native coronary artery without angina pectoris; I25.2 Old myocardial infarction; I48.91 Unspecified atrial fibrillation; E11.9 Type 2 diabetes mellitus without complications; Z88.9 Allergy status to unspecified drugs, medicaments and biological substances; Z79.02 Long term (current) use of antithrombotics/antiplatelets; Z79.84 Long term (current) use of oral hypoglycemic drugs; Z79.1 Long term (current) use of non-steroidal anti-inflammatories (NSAID); Z79.899 Other long term (current) drug therapy; Z86.73 Personal history of transient ischemic attack (TIA), and cerebral infarction without residual deficits; Z86.711 Personal history of pulmonary embolism; Z95.5 Presence of coronary angioplasty implant and graft
CPT/HCPCS: 36415; 71045; 80053; 83735; 84484; 85025; 85610; 85730; 93005; 99284; J2270; J2405

== ENCOUNTER 2024-07-08 14:34 | Emergency (ER) | payer MEDICARE ==
[2023-10-31 01:51] VITALS: TEMP 98
[2024-05-13 19:24] VITALS: BP 161/80; PULSE 79; RESP 20
[~2024-07-08] VITALS: Ht 167.6 cm; Wt 77.1 kg
[2024-07-08 15:00] VITALS: PULSE 89; RESP 16; TEMP 98.2; O2SAT 98
[2024-07-08] MEDS: KETOROLAC TROMETHAMINE 30 MG/ML VIAL IM STA (17:23)
[2024-07-08] MEDS: TRAMADOL HCL 50 MG TAB PO ONE (17:23)
== END 2024-07-08 17:42 | disposition home or self-care (01) ==
LOC: ER 14:45
DX: M54.50 Low back pain, unspecified (principal); X50.9XXA Other and unspecified overexertion or strenuous movements or postures, initial encounter; Y92.89 Other specified places as the place of occurrence of the external cause; E11.9 Type 2 diabetes mellitus without complications; I48.91 Unspecified atrial fibrillation; I25.10 Atherosclerotic heart disease of native coronary artery without angina pectoris; I25.2 Old myocardial infarction; Z86.711 Personal history of pulmonary embolism; Z86.73 Personal history of transient ischemic attack (TIA), and cerebral infarction without residual deficits
CPT/HCPCS: 72131; 99284; J1885

== ENCOUNTER 2025-07-26 18:18 | Inpatient (IN) | payer MEDICARE ==
[~2025-07-26] VITALS: Ht 167.6 cm; Wt 74.8 kg
[2025-07-26 19:05] LABS: BASOPHILS % 0.4 % (0.0-1.0); EOSINOPHILS % 0.7 % (0.0-6.0); LYMPHOCYTES % 44.0 % (18.0-39.1); MONOCYTES % 7.3 % (4.4-11.3); NEUTROPHILS % 47.3 % (38.7-80.0); RED CELL DISTRIBUTION WIDTH 13.7 % (11.7-14.4)
[2025-07-26 19:32] LABS: INR 2.3
[2025-07-26 19:37] LABS: EST GLOMERULAR FILTRATION RATE 68.0 ML/MIN (>=60)
[2025-07-26] MEDS: ONDANSETRON HCL INJ 2MG/ML 2ML 2 MG/ML VIAL IV STA (22:37)
[2025-07-26] MEDS: Morphine 2mg Syringe 2 MG/ML SYR IV ONE (22:38)
[2025-07-27] VITALS (7 sets, daily range): BP systolic 129–152; BP diastolic 76–95; PULSE 90–108; RESP 16–20; TEMP 97–98.7; O2SAT 95–100
[2025-07-27] MEDS ORDERED: IOPAMIDOL 370 MG/ML 100 ML INFUS..BTL INJ ONE ×2 (00:31→20:45)
[2025-07-27] MEDS: Morphine 2mg Syringe 2 MG/ML SYR IV PRN (05:02)
[2025-07-27] MEDS ORDERED: ONDANSETRON HCL INJ 2MG/ML 2ML 2 MG/ML VIAL IV PRN (08:45)
[2025-07-27] MEDS: ONDANSETRON HCL INJ 2MG/ML 2ML 2 MG/ML VIAL IV PRN (11:53)
[2025-07-27] MEDS: SODIUM CHLORIDE 0.9% 1000ML 1,000 ML IV SCH (12:31)
[2025-07-27] MEDS: RANOLAZINE 500 MG TABSR PO SCH (17:32)
[2025-07-27] MEDS: WARFARIN SOD 5 MG TAB PO SCH (17:33)
[2025-07-27] MEDS ORDERED: DEXTROSE 50% SYRINGE 50 ML IV PRN (18:30)
[2025-07-27] MEDS: INSULIN REGULAR, HUMAN 100 UNIT/1 ML SQ SCH (23:21)
[2025-07-28] VITALS (7 sets, daily range): BP systolic 97–148; BP diastolic 68–87; PULSE 78–99; RESP 16–20; TEMP 97.5–98.2; O2SAT 95–100
[2025-07-28 06:36] LABS: BASOPHILS % 0.4 % (0.0-1.0); EOSINOPHILS % 1.0 % (0.0-6.0); LYMPHOCYTES % 46.2 % (18.0-39.1); MONOCYTES % 7.8 % (4.4-11.3); NEUTROPHILS % 44.3 % (38.7-80.0); RED CELL DISTRIBUTION WIDTH 14.1 % (11.7-14.4)
[2025-07-28 07:16] LABS: CHOL/HDL RATIO 2.5 (3.0-3.6); EST GLOMERULAR FILTRATION RATE 92.0 ML/MIN (>=60); LDL CHOLESTEROL 61.0 MG/DL (60-130)
[2025-07-28] MEDS: POTASSIUM CHLORIDE 20MEQ/100ML 100 ML IV SCH ×2 (08:56→16:23)
[2025-07-28] MEDS: ASPIRIN 81 MG ENTERIC COATED PO SCH (08:56)
[2025-07-28] MEDS: METOPROLOL TARTRATE 25 MG TAB PO SCH (08:57)
[2025-07-28] MEDS ORDERED: SODIUM CHLORIDE 0.9% 1000ML 1,000 ML IV SCH (14:15)
[2025-07-28 20:29] LABS: T3 UPTAKE 34.08 % (22.5-37.0)
[2025-07-28] MEDS: INSULIN GLARGINE 100 UNITS/ML VIAL SQ SCH (21:29)
[2025-07-29] VITALS (9 sets, daily range): BP systolic 98–138; BP diastolic 71–86; PULSE 71–88; RESP 18–20; TEMP 97.8–98.2; O2SAT 93–100
[2025-07-29] MEDS: MECLIZINE HCL 12.5 MG TAB PO SCH (10:01)
[2025-07-29 11:10] LABS: INR 1.57
[2025-07-30] VITALS (8 sets, daily range): BP systolic 109–135; BP diastolic 64–81; PULSE 70–77; RESP 17–19; TEMP 96.5–97.5; O2SAT 97–100
[2025-07-30 10:07] LABS: EST GLOMERULAR FILTRATION RATE 81.0 ML/MIN (>=60)
[2025-07-30] MEDS: WARFARIN SOD 3 MG TAB PO SCH (16:32)
[2025-07-31] VITALS (8 sets, daily range): BP systolic 98–133; BP diastolic 61–86; PULSE 58–82; RESP 17–18; TEMP 96.1–97.6; O2SAT 97–100
[2025-07-31 06:45] LABS: INR 1.97
[2025-07-31 06:49] LABS: EST GLOMERULAR FILTRATION RATE 67.0 ML/MIN (>=60)
[2025-07-31] MEDS: MAGNESIUM SULFATE 2GM/50ML 50 ML IV SCH (09:13)
[2025-07-31 09:49] LABS: INR 2.13
[2025-08-01] VITALS (10 sets, daily range): BP systolic 101–137; BP diastolic 57–79; PULSE 61–76; RESP 18; TEMP 96.6–97.6; O2SAT 94–100
[2025-08-01 13:37] LABS: INR 3.1
[2025-08-02 02:09] VITALS: BP 126/70; PULSE 65
[2025-08-02 04:20] VITALS: BP 106/67; PULSE 64; RESP 18; TEMP 98.1; O2SAT 100
[2025-08-02 06:39] LABS: INR 3.52
[2025-08-02 07:32] VITALS: BP 100/61; PULSE 66; RESP 18; TEMP 97.6; O2SAT 100
[2025-08-02 08:11] VITALS: BP 100/61; PULSE 66; RESP 18; TEMP 97.6; O2SAT 100
[2025-08-02 16:08] VITALS: BP 124/78; PULSE 84; RESP 18; TEMP 98.1; O2SAT 96
[2025-08-02 20:00] VITALS: BP 106/65; PULSE 69; RESP 20; TEMP 97.9; O2SAT 95
[2025-08-03] VITALS (7 sets, daily range): BP systolic 109–120; BP diastolic 59–68; PULSE 66–72; RESP 18–19; TEMP 97.5–98.4; O2SAT 96–98
[2025-08-03 07:48] LABS: INR 3.43
[2025-08-03] MEDS: Morphine 2mg Syringe 2 MG/ML SYR IV PRN (13:45)
[2025-08-03] MEDS: WARFARIN SOD 5 MG TAB PO SCH (16:24)
[2025-08-04] VITALS: BP 110/58; PULSE 70; RESP 16; TEMP 98; O2SAT 96
[2025-08-04 04:00] VITALS: BP 112/60; PULSE 66; RESP 18; TEMP 97.6; O2SAT 98
[2025-08-04 08:05] VITALS: BP 109/57; PULSE 58; RESP 17; TEMP 97.4; O2SAT 95
[2025-08-04 09:00] VITALS: BP 109/57; PULSE 58; RESP 17; TEMP 97.4; O2SAT 95
[2025-08-04] MEDS ORDERED: WARFARIN SOD 2 MG TAB PO SCH (17:00)
== END 2025-08-04 10:50 | DRG 67 ==
LOC: ER 18:38 → ERHOLD 07-27 08:34 → MED/SURG3 07-27 11:32
PROVIDERS: ADMIT Family Medicine; ATTEND Family Medicine
DX: I66.3 Occlusion and stenosis of cerebellar arteries (principal); I50.43 Acute on chronic combined systolic (congestive) and diastolic (congestive) heart failure; I69.951 Hemiplegia and hemiparesis following unspecified cerebrovascular disease affecting right dominant side; I11.0 Hypertensive heart disease with heart failure; I27.24 Chronic thromboembolic pulmonary hypertension; I27.81 Cor pulmonale (chronic); I27.29 Other secondary pulmonary hypertension; Z86.711 Personal history of pulmonary embolism; I48.91 Unspecified atrial fibrillation; I25.10 Atherosclerotic heart disease of native coronary artery without angina pectoris; I25.2 Old myocardial infarction; Z90.49 Acquired absence of other specified parts of digestive tract; Z88.8 Allergy status to other drugs, medicaments and biological substances; E11.649 Type 2 diabetes mellitus with hypoglycemia without coma; E78.00 Pure hypercholesterolemia, unspecified; R07.89 Other chest pain; R79.89 Other specified abnormal findings of blood chemistry; R42 Dizziness and giddiness; Z79.01 Long term (current) use of anticoagulants; Z79.02 Long term (current) use of antithrombotics/antiplatelets; Z79.84 Long term (current) use of oral hypoglycemic drugs; Z98.84 Bariatric surgery status; Z95.5 Presence of coronary angioplasty implant and graft; Z82.49 Family history of ischemic heart disease and other diseases of the circulatory system
CPT/HCPCS: 36415; 70496; 70498; 70551; 71045; 71260; 74177; 80053; 80061; 82550; 82948; 83036; 83735; 83880; 84436; 84443; 84479; 84484; 85025; 85610; 85730; 93005; 93306; 99284; J1815; J2270; J2405; J3475; J3480; J7030; J7799; Q9967